=== PATIENT | female | born 1965 | race Two or more races ===

== ENCOUNTER 2022-10-05 18:33 | Emergency (ER) | payer SELFPAY ==
[~2022-10-05] VITALS: Ht 165.1 cm; Wt 95.2 kg
[2022-10-05] MEDS ORDERED: cloNIDine HCL 0.1 MG TAB PO ONE (20:00)
[2022-10-05 20:22] LABS: Basophils # (auto) 0.5 10 ^3/uL (0-0.2); Basophils % (auto) 4.6 % (0.0-2.0); Eosinophils # (auto) 0.2 10 ^3/uL (0-0.8); Eosinophils % (auto) 1.9 % (0.0-7.0); Hematocrit 44.6 % (36.0-46.0); Hemoglobin 15.1 g/dL (12.2-16.2); Lymphocytes # (auto) 1.6 10 ^3/uL (0.4-5.4); Lymphocytes % (auto) 16.4 % (10.0-50.0); Mean Corpuscular Hemoglobin 27.7 pg (28.0-32.0); Mean Corpuscular Hgb Conc. 33.9 g/dL (32.0-36.0); Mean Corpuscular Volume 81.6 fL (80.0-100.0); Monocytes # (auto) 0.3 10 ^3/uL (0-1.3); Monocytes % (auto) 3.1 % (0.0-12.0); Neutrophils # (auto) 7.3 10 ^3/uL (1.6-8.6); Nucleated Red Blood Cells % 0.4 %; Red Blood Cells 5.46 10^6/uL (4.0-5.20); Red Cell Distribution Width 14.4 % (11.8-14.3); White Blood Cell 9.9 10^3/uL (4.4-10.8)
[2022-10-05 20:37] LABS: Albumin 4.1 g/dL (3.4-5.0); Calcium 9.2 mg/dL (8.5-10.1); Potassium 3.7 mmol/L (3.5-5.1)
[2022-10-05 20:42] LABS: Bilirubin, Total 0.5 mg/dL (0.2-1.0); Total Protein 7.8 g/dL (6.4-8.2)
[2022-10-05] MEDS ORDERED: IOHEXOL 350 MG/ML 100ML IJ ONE (20:51)
[2022-10-05 21:25] LABS: Urine Bacteria FEW /hpf (None Seen); Urine Blood Negative /uL (Negative); Urine Mucus FEW (None Seen); Urine Specific Gravity 1.012 (1.001-1.035); Urine WBC 1 /hpf (0 - 5)
[2022-10-05 21:44] LABS: Alcohol, Urine < 3.0 mg/dL (0-10); Amphetamine Screen, Urine NEGATIVE (NEGATIVE); Barbiturate Scree,Urine NEGATIVE (NEGATIVE); Benzodiazephine Screen, Urine NEGATIVE (NEGATIVE); Cannabinoid Screen, Urine NEGATIVE (NEGATIVE); Cocaine Screen, Urine NEGATIVE (NEGATIVE); Opiate Scree,Urine NEGATIVE (NEGATIVE); Phencyclidine Screen, Urine NEGATIVE (NEGATIVE)
[2022-10-06] MEDS ORDERED: AMLO-496 PO (05:30)
[2022-10-06] MEDS ORDERED: FAMO20TA10 PO (05:30)
[2022-10-06 05:40] VITALS: BP 131/81
== END 2022-10-06 06:01 | disposition home or self-care (01) ==
LOC: ER 18:33
DX: I10 Essential (primary) hypertension (principal); K21.00 Gastro-esophageal reflux disease with esophagitis, without bleeding; Z79.899 Other long term (current) drug therapy
CPT/HCPCS: 36415; 71275; 80053; 80307; 81001; 83880; 84484; 85025; 85379; 93005; 99285; Q9967

== ENCOUNTER 2022-10-18 11:04 | Emergency (ER) | payer SELFPAY ==
[~2022-10-18] VITALS: Ht 165.1 cm; Wt 98.0 kg
[~2022-10-18 11:04] MED LIST: AMLO-496 PO; FAMO20TA10 PO
[2022-10-18 12:10] LABS: Urine Bacteria NONE SEEN /hpf (None Seen); Urine Blood Negative /uL (Negative); Urine Specific Gravity 1.011 (1.001-1.035); Urine WBC 1 /hpf (0 - 5)
[2022-10-18 12:13] LABS: Albumin 4.1 g/dL (3.4-5.0); BUN/Creatinine Ratio 12.6 (10.0-20.0); Calcium 9.2 mg/dL (8.5-10.1)
[2022-10-18 12:14] LABS: Bilirubin, Total 0.6 mg/dL (0.2-1.0); Total Protein 7.7 g/dL (6.4-8.2)
[2022-10-18 13:19] LABS: Basophils # (auto) 0.1 10 ^3/uL (0-0.2); Basophils % (auto) 0.8 % (0.0-2.0); Eosinophils # (auto) 0.3 10 ^3/uL (0-0.8); Hematocrit 42.6 % (36.0-46.0); Hemoglobin 14.6 g/dL (12.2-16.2); Lymphocytes # (auto) 1.5 10 ^3/uL (0.4-5.4); Mean Corpuscular Hemoglobin 28.1 pg (28.0-32.0); Mean Corpuscular Hgb Conc. 34.3 g/dL (32.0-36.0); Monocytes # (auto) 0.4 10 ^3/uL (0-1.3); Monocytes % (auto) 4.4 % (0.0-12.0); Neutrophils # (auto) 6.5 10 ^3/uL (1.6-8.6); Neutrophils % (auto) 74.8 % (37.0-80.0); Nucleated Red Blood Cells % 0.5 %; Red Cell Distribution Width 14.8 % (11.8-14.3); White Blood Cell 8.6 10^3/uL (4.4-10.8)
[2022-10-18] MEDS ORDERED: METH4PAK PO (13:49)
[2022-10-18 14:00] VITALS: BP 150/83
== END 2022-10-18 14:18 | disposition home or self-care (01) ==
LOC: ER 11:04
DX: R21 Rash and other nonspecific skin eruption (principal); R22.43 Localized swelling, mass and lump, lower limb, bilateral; R19.7 Diarrhea, unspecified; R11.0 Nausea; I10 Essential (primary) hypertension
CPT/HCPCS: 36415; 80053; 81001; 85025; 85652

== ENCOUNTER 2022-11-15 16:16 | Emergency (ER) | payer OTHER ==
[~2022-11-15] VITALS: Ht 165.1 cm; Wt 91.0 kg
[~2022-11-15 16:16] MED LIST changes: +METH4PAK PO
[2022-11-15 16:36] LABS: Basophils # (auto) 0.1 10 ^3/uL (0-0.2); Basophils % (auto) 0.9 % (0.0-2.0); Eosinophils # (auto) 0.1 10 ^3/uL (0-0.8); Eosinophils % (auto) 1.3 % (0.0-7.0); Hematocrit 41.3 % (36.0-46.0); Hemoglobin 14.2 g/dL (12.2-16.2); Lymphocytes # (auto) 2.2 10 ^3/uL (0.4-5.4); Lymphocytes % (auto) 25.3 % (10.0-50.0); Mean Corpuscular Hemoglobin 27.8 pg (28.0-32.0); Mean Corpuscular Hgb Conc. 34.3 g/dL (32.0-36.0); Mean Corpuscular Volume 81.1 fL (80.0-100.0); Monocytes # (auto) 0.4 10 ^3/uL (0-1.3); Monocytes % (auto) 4.3 % (0.0-12.0); Neutrophils # (auto) 5.9 10 ^3/uL (1.6-8.6); Neutrophils % (auto) 68.2 % (37.0-80.0); Nucleated Red Blood Cells % 0.2 %; Red Blood Cells 5.09 10^6/uL (4.0-5.20); Red Cell Distribution Width 14.8 % (11.8-14.3); White Blood Cell 8.7 10^3/uL (4.4-10.8)
[2022-11-15] MEDS ORDERED: IOHEXOL 350 MG/ML 100ML IJ ONE ×2 (16:58→22:05)
[2022-11-15 17:13] LABS: Albumin 4.1 g/dL (3.4-5.0); Calcium 9.7 mg/dL (8.5-10.1)
[2022-11-15 17:17] LABS: BUN/Creatinine Ratio 9.3 (10.0-20.0); Bilirubin, Total 0.6 mg/dL (0.2-1.0); Total Protein 7.6 g/dL (6.4-8.2)
[2022-11-15 19:13] VITALS: BP 153/87
== END 2022-11-15 19:25 | disposition home or self-care (01) ==
LOC: ER 16:16
DX: R06.00 Dyspnea, unspecified (principal); E78.5 Hyperlipidemia, unspecified; I10 Essential (primary) hypertension
CPT/HCPCS: 36415; 71045; 71275; 80053; 84484; 85025; 93005; 99285; Q9967

== ENCOUNTER → 2022-11-30 | Outpatient (CLI) | payer OTHER ==
[~2022-11-30] MED LIST changes: +ONDANSETRON HCL 4 MG/2 ML VIAL IV ONE; +ONDANSETRON HCL 4 MG/2 ML VIAL ONE; +SODIUM CHLORIDE 0.9% 500 ML IV ONE
[2022-11-30 10:14] VITALS: BP 152/97
[2022-11-30 11:15] VITALS: BP 127/76
[2022-11-30 12:15] VITALS: BP 135/78
== END | disposition home or self-care (01) ==
LOC: CHF HDHVI 10:02
PROVIDERS: ATTEND Internal Medicine Cardiovascular Disease
DX: I10 Essential (primary) hypertension (principal); D64.9 Anemia, unspecified; E78.5 Hyperlipidemia, unspecified
CPT/HCPCS: 96361; 96374; G0463; J2405; J7040

== ENCOUNTER → 2022-12-06 | Outpatient (CLI) | payer OTHER ==
[~2022-12-06] MED LIST changes: -ONDANSETRON HCL 4 MG/2 ML VIAL IV ONE; -ONDANSETRON HCL 4 MG/2 ML VIAL ONE; -SODIUM CHLORIDE 0.9% 500 ML IV ONE
== END | disposition home or self-care (01) ==
LOC: Rad HDHVI 09:00
PROVIDERS: ATTEND Internal Medicine Cardiovascular Disease
DX: I07.1 Rheumatic tricuspid insufficiency (principal); I10 Essential (primary) hypertension
CPT/HCPCS: 93306

== ENCOUNTER → 2022-12-12 | Outpatient (CLI) | payer OTHER ==
[~2022-12-12] MED LIST changes: +IOHEXOL 350 MG/ML 100ML IJ ONE
[2022-12-12 09:25] VITALS: BP 153/85
[2022-12-12 09:48] VITALS: BP 157/88
== END | disposition home or self-care (01) ==
LOC: Rad HDHVI 09:06
PROVIDERS: ATTEND Internal Medicine Cardiovascular Disease
DX: I70.1 Atherosclerosis of renal artery (principal); I10 Essential (primary) hypertension
CPT/HCPCS: 74175; G0463; Q9967

== ENCOUNTER 2024-11-24 19:09 | Emergency (ER) | payer OTHER ==
[~2024-11-24] VITALS: Ht 165.1 cm; Wt 77.0 kg
[~2024-11-24 19:09] MED LIST changes: -AMLO-496 PO; +AMLO1TAB23 PO; -IOHEXOL 350 MG/ML 100ML IJ ONE
--- NOTE | 2024-11-24 20:21 | DVH ---
CLINICAL INDICATION: fall TECHNIQUE: 3 radiographic views of the right wrist were obtained. Comparison: None FINDINGS/IMPRESSION: There is no evidence of acute fracture or dislocation. The visualized joint space is well maintained. The alignment is anatomical. There is no radiopaque foreign body.
--- NOTE | 2024-11-24 20:51 | ED.PDOC ---
Stacy. trauma (HPI) HPI Comments 59 y/o F, with PMHx of HLD and HTN presents to the ED for CC of s/p fall. Patient states, that she tripped over dog gate, fell, and caught herself with her right wrist. Patient complains, of current 6/10 pain following trauma. Patient denies cervical injury, head injury, open wounds, or loss of consciousness. No other symptoms or modifying factors present at this time. Chief Complaint: Upper Extremity Time Seen by MD: 20:00 Primary Care Provider: SRAVAN Kwok notes: Nurses Notes, Medications, Allergies Allergies: Coded Allergies: Amlodipine (Verified Allergy, Unknown, 11/15/22) Home Meds Active Scripts Methylprednisolone (Medrol Dosepak) 4 Mg Caleb, 4 MG PO UD, #21 TAB UAD Prov:CHICO BOURNE MD 10/18/22 Amlodipine Besylate (Amlodipine Besylate) 10 Mg Tab, 10 MG PO DAILY for 30 Days, #30 TAB Prov:QUANG GARCIA DO 10/06/22 Famotidine (PEPCID TABLET) 20 Mg Tb, 1 TAB PO BID for 20 Days, #40 TAB 5 Refills Prov:QUANG GARCIA DO 10/06/22 Information Source: Patient Mode of Arrival: Ambulatory Severity: Moderate Timing: Hours Duration: Since onset Prehospital treatment: None Location: (R) Wrist Location of laceration: None Mechanism: Fall Associated signs and symtoms: None Past Medical History PAST MEDICAL HISTORY: High Lipids, HTN Surgical History: Denies all surgeries GUEST SERVICES OFFICER History: No Pertinent GUEST SERVICES OFFICER History Family History Family History: Unknown Social History Smoker: Non-Smoker Alcohol: Denies ETOH Use Drugs: Denies Drug Use Lives In: Home Constitutional: denies: chills, diaphoresis, fatigue, fever, malaise, sweats, weakness, others EENTM: denies: blurred vision, double vision, ear bleeding, ear discharge, ear drainage, ear pain, ear ringing, eye pain, eye redness, hearing loss, mouth pain, mouth swelling, nasal discharge, nose bleeding, nose congestion, nose pain, photophobia, tearing, throat pain, throat swelling, voice changes, others Respiratory: denies: cough, hemoptysis, orthopnea, SOB at rest, shortness of breath, SOB with excertion, stridor, wheezing, others Cardiovascular: denies: chest pain, dizzy spells, diaphoresis, Dyspnea on exertion, edema, irregular heart beat, left arm pain, lightheadedness, palpitations, PND, syncope, others Gastrointestinal: denies: abdomen distended, abdominal pain, blood streaked bowels, constipated, diarrhea, dysphagia, difficulty swallowing, hematemesis, melena, nausea, poor appetite, poor fluid intake, rectal bleeding, rectal pain, vomiting, others Genitourinary: denies: abnormal vagina bleeding, burning, dyspareunia, dysuria, flank pain, frequency, hematuria, incontinence, pain, , vagina discharge, urgency, others Neurological: denies: dizziness, fainting, headache, left sided numbness, left sided weakness, numbness, paresthesia, pre-existing deficit, right sided numbness, right sided weakness, seizure, speech problems, tingling, tremors, weakness, others Musculoskeletal: reports: others (right wrist pain); denies: back pain, gout, joint pain, joint swelling, muscle pain, muscle stiffness, neck pain Integumetry: denies: bruises, change in color, change in hair/nails, dryness, laceration, lesions, lumps, rash, wounds, others Allergic/Immunocompromised: denies: Difficulty Healing, Frequent Infections, Hives, Itching, others Hematologic/Lymphatic: denies: anemia, blood clots, easy bleeding, easy bruising, swollen glands, others Endocrine: denies: excessive hunger, excessive sweating, excessive thirst, excessive urination, flushing, intolerance to cold, intolerance to heat, unexplained weight gain, unexplained weight loss, others Psychiatric: denies: anxiety, bipolar disorder, depression, hopeless, panic disorder, schizophrenia, sleepless, suicidal, others All Other Systems: Reviewed and Negative Physical Exam General Appearance: No Apparent Distress, Normal HEENT: Normal ENT Inspection, Pharynx Normal, TMs Normal Neck: Full Range of Motion, Non-Tender, Normal, Normal Inspection Respiratory: Chest Non-Tender, Lungs Clear, No Accessory Muscle Use, No Respiratory Distress, Normal Breath Sounds Cardiovascular: No Edema, No JVD, No Murmur, No Gallop, Normal Peripheral Pulses, Regular Rate/Rhythm Breast Exam: Deferred Gastrointestinal: No Organomegaly, Non Tender, No Pulsatile Mass, Normal Bowel Sounds, Soft Genitalia: Deferred Pelvic: Deferred Rectal: Deferred Extremities: No calf tenderness, Normal capillary refill, Normal inspection, Normal range of motion, Non-tender, No pedal edema Musculoskeletal : Apperance: Normal Neurologic: Alert, metal bonding press operator II-XII nml as Tested, No Motor Deficits, Normal Affect, Normal Mood, No Sensory Deficits Cerebellar Function: Normal Reflexes: Normal Skin: Dry, Normal Color, Warm Lymphatic: No Adenopathy Was a procedure done? Was a procedure done?: No Differential Diagnosis Multiple Trauma: Fractures, Contusion, Other (strain, dislocation) X-Ray, Labs, Meds, VS Vital Signs Date Time Temp Pulse Resp B/P (MAP) Pulse Ox O2 Delivery O2 Flow Rate FiO2 11/24/24 19:30 98.4 75 20 136/69 (91) 99 98.4 Time of 1ST Reevaluation: 20:30 Reevaluation 1ST: Unchanged Patient Education/Counseling: Diagnosis, Treatment Family Education/Counseling: No Family Present Departure 1 Departure Time of Disposition: 20:56 Impression: Primary Impression: Contusion of right wrist Qualified Codes: S60.211A - Contusion of right wrist, initial encounter Disposition: HOME / SELF CARE / HOMELESS Condition: Fair Discharged With: Self Critical Care Note Critical Care Time?: No Stability Stability form required: No Heart Score Heart Score: Heart Score Response (Comments) Value History N/A 0 EKG N/A 0 Age N/A 0 Risk Factors N/A 0 Troponin N/A 0 Total 0 I personally scribed for MARTÍNEZ SEXTON ([email or web address]) on 11/24/24 at 20:51. Electronically submitted by Lissy Burns ([email or web address]). MARTÍNEZ SEXTON Nov 24, 2024 20:51
--- NOTE | 2024-11-24 20:56 | ED.PDOC ---
Musculoskeletal HPI Comments 59-year-old female complaining of right wrist pain. Patient states she tripped over a dog gate and fell on her right wrist. Injury happened today. Nothing makes it better, movement makes it worse. Chief Complaint: Upper Extremity Time Seen by MD: 19:21 Primary Care Provider: SRAVAN Kwok Notes: Nurses Notes Allergies: Coded Allergies: Amlodipine (Verified Allergy, Unknown, 11/15/22) Home Meds Active Scripts Methylprednisolone (Medrol Dosepak) 4 Mg Caleb, 4 MG PO UD, #21 TAB UAD Prov:CHICO BOURNE MD 10/18/22 Amlodipine Besylate (Amlodipine Besylate) 10 Mg Tab, 10 MG PO DAILY for 30 Days, #30 TAB Prov:QUANG GARCIA DO 10/06/22 Famotidine (PEPCID TABLET) 20 Mg Tb, 1 TAB PO BID for 20 Days, #40 TAB 5 Refills Prov:QUANG GARCIA DO 10/06/22 Information Source: Patient Mode of Arrival: Ambulatory Location: Right Extremity Location: Wrist Past Medical History PAST MEDICAL HISTORY: High Lipids, HTN Surgical History: Denies all surgeries BOWLING ALLEY FLOORS INSTALLER History: No Pertinent BOWLING ALLEY FLOORS INSTALLER History Family History Family History: Unknown Social History Smoker: Non-Smoker Alcohol: Denies ETOH Use Drugs: Denies Drug Use Lives In: Home Constitutional: denies: chills, diaphoresis, fatigue, fever, malaise, sweats, weakness, others EENTM: denies: blurred vision, double vision, ear bleeding, ear discharge, ear drainage, ear pain, ear ringing, eye pain, eye redness, hearing loss, mouth pain, mouth swelling, nasal discharge, nose bleeding, nose congestion, nose pain, photophobia, tearing, throat pain, throat swelling, voice changes, others Respiratory: denies: cough, hemoptysis, orthopnea, SOB at rest, shortness of breath, SOB with excertion, stridor, wheezing, others Cardiovascular: denies: chest pain, dizzy spells, diaphoresis, Dyspnea on exertion, edema, irregular heart beat, left arm pain, lightheadedness, palpitations, PND, syncope, others Gastrointestinal: denies: abdomen distended, abdominal pain, blood streaked bowels, constipated, diarrhea, dysphagia, difficulty swallowing, hematemesis, melena, nausea, poor appetite, poor fluid intake, rectal bleeding, rectal pain, vomiting, others Genitourinary: denies: abnormal vagina bleeding, burning, dyspareunia, dysuria, flank pain, frequency, hematuria, incontinence, pain, , vagina discharge, urgency, others Neurological: denies: dizziness, fainting, headache, left sided numbness, left sided weakness, numbness, paresthesia, pre-existing deficit, right sided numbness, right sided weakness, seizure, speech problems, tingling, tremors, weakness, others Musculoskeletal: reports: muscle pain, muscle stiffness; denies: back pain, gout, joint pain, joint swelling, neck pain, others Integumetry: denies: bruises, change in color, change in hair/nails, dryness, laceration, lesions, lumps, rash, wounds, others Allergic/Immunocompromised: denies: Difficulty Healing, Frequent Infections, Hives, Itching, others Hematologic/Lymphatic: denies: anemia, blood clots, easy bleeding, easy bruising, swollen glands, others Physical Exam General Appearance: No Apparent Distress, Normal HEENT: Normal ENT Inspection, Pharynx Normal, TMs Normal Neck: Full Range of Motion, Non-Tender, Normal, Normal Inspection Respiratory: Chest Non-Tender, Lungs Clear, No Accessory Muscle Use, No Respiratory Distress, Normal Breath Sounds Cardiovascular: No Edema, No JVD, No Murmur, No Gallop, Normal Peripheral Pulses, Regular Rate/Rhythm Breast Exam: Deferred Gastrointestinal: No Organomegaly, Non Tender, No Pulsatile Mass, Normal Bowel Sounds, Soft Genitalia: Deferred Pelvic: Deferred Rectal: Deferred Extremities: No calf tenderness, Normal capillary refill, Normal inspection, Other (Tender to palpation of the right wrist distal ulna. No obvious crepitus no obvious swelling. Mild redness noted.) Musculoskeletal : Apperance: Normal Neurologic: Alert, bagger meat II-XII nml as Tested, No Motor Deficits, Normal Affect, Normal Mood, No Sensory Deficits Cerebellar Function: Normal Reflexes: Normal Skin: Dry, Normal Color, Warm Lymphatic: No Adenopathy Was a procedure done? Was a procedure done?: No Differential Diagnosis EXT Differential Diagnosis: Fracture, Sprain, Dislocation X-Ray, Labs, Meds, VS Vital Signs Date Time Temp Pulse Resp B/P (MAP) Pulse Ox O2 Delivery O2 Flow Rate FiO2 11/24/24 19:30 98.4 75 20 136/69 (91) 99 98.4 X-Ray, Labs, Meds, VS Comment Imaging: X-rays and CT scans were reviewed and interpreted by this provider, imaging shows no fractures and no pathological disease. Pending radiology review. Laboratory: Labs reviewed and interpreted by this provider. No significant abnormalities noted. Patient has prior medical visits reviewed. Med reconciliation performed Vital signs reviewed Time of 1ST Reevaluation: 20:30 Reevaluation 1ST: Unchanged Patient Education/Counseling: Diagnosis, Treatment, Need For Follow Up (Follow up with PCP in the next 3-5 days.) Family Education/Counseling: Diagnosis Departure 1 Departure Time of Disposition: 20:30 Impression: Primary Impression: Contusion of right wrist Qualified Codes: S60.211A - Contusion of right wrist, initial encounter Disposition: HOME / SELF CARE / HOMELESS Condition: Fair Discharged With: Self Critical Care Note Critical Care Time?: No Stability Stability form required: No Heart Score Heart Score: Heart Score Response (Comments) Value History N/A 0 EKG N/A 0 Age N/A 0 Risk Factors N/A 0 Troponin N/A 0 Total 0 MARTÍNEZ SEXTON [employer]AL SURFACE FIRE SUPPORT PLANNER Nov 24, 2024 20:56
[2024-11-24 21:06] VITALS: BP 136/69; PULSE 75; RESP 20; TEMP 98.4; O2SAT 99
== END 2024-11-24 21:00 | disposition home or self-care (01) ==
LOC: ER 19:09
DX: S60.211A Contusion of right wrist, initial encounter (principal); I10 Essential (primary) hypertension; E78.5 Hyperlipidemia, unspecified; Z88.1 Allergy status to other antibiotic agents; W01.0XXA Fall on same level from slipping, tripping and stumbling without subsequent striking against object, initial encounter; Y93.89 Activity, other specified; Y92.89 Other specified places as the place of occurrence of the external cause; Y99.8 Other external cause status
CPT/HCPCS: 73110

== ENCOUNTER 2025-04-13 10:50 | Inpatient (IN) | payer OTHER ==
[~2025-04-13] VITALS: Ht 165.1 cm; Wt 86.7 kg
--- NOTE | 2025-04-13 11:07 | ECG ---
[facility] Test Date: 2025-04-13 Test Time: 11:06:15 Pat Name: KING RAGSDALE Department[facility] Patient [id number] Room: 0206T Gender: F Diffuser Operator: gp : [id number] Requested By: EMERGENCY EMERGENCY Order Number: [id number] Reading MD: Tra Collado Measurements Intervals [place] Rate: 80 P: 28 AK: 169 QRS: -14 QRSD: 92 T: 21 QT: 395 QTc: 456 Interpretive Statements Sinus rhythm Low voltage, precordial leads Left ventricular hypertrophy Anterior Q waves, possibly due to LVH Baseline wander in lead(s) I,III,aVL,V1,V2 Electronically Signed On 04-14-2025 17:00:01 PDT by Tra Collado Please click the below link to view image of tracing.
--- NOTE | 2025-04-13 11:39 | ED.PDOC ---
HPI Comments This is a 59-year-old female with past medical history of hypertension and anxiety disorder came to the hospital due to chest pain since today morning. She describes the pain as diffuse chest pain, started while she was walking, radiated to the left shoulder, pressure-like, 7/10 in intensity, with no clear exacerbating or relieving factor. She also reports of blurry vision, nausea, vomiting, and shortness of breaths. Per patient, 1 week back she felt dizzy and lightheadedness and since then she has not feeling well. She denies fever, cough, palpitation, sweating, or any recent sick contact/chest trauma. Home meds: Sertraline, previously was taking lisinopril (recently due to low blood pressure, PCP as stopped taking medicine), tirzepatide Chief Complaint: Chest Pain Time Seen by MD: 10:55 Primary Care Provider: SRAVAN Reviewed Notes: Nurses Notes Allergies: Coded Allergies: Amlodipine (Verified Allergy, Unknown, 11/15/22) Home Meds Active Scripts Methylprednisolone (Medrol Dosepak) 4 Mg Caleb, 4 MG PO UD, #21 TAB UAD Prov:CHICO BOURNE MD 10/18/22 Amlodipine Besylate (Amlodipine Besylate) 10 Mg Tab, 10 MG PO DAILY for 30 Days, #30 TAB Prov:QUANG GARCIA DO 10/06/22 Famotidine (PEPCID TABLET) 20 Mg Tb, 1 TAB PO BID for 20 Days, #40 TAB 5 Refills Prov:QUANG GARCIA DO 10/06/22 Information Source: Patient Mode of Arrival: Ambulatory Past Medical History PAST MEDICAL HISTORY: High Lipids, HTN Surgical History: Denies all surgeries DIALYSIS PATIENT CARE TECHNICIAN History: No Pertinent DIALYSIS PATIENT CARE TECHNICIAN History Family History Family History: Unknown Social History Smoker: Non-Smoker Alcohol: Denies ETOH Use Drugs: Denies Drug Use Lives In: Home Constitutional: denies: chills, diaphoresis, fatigue, fever, malaise, sweats, weakness, others EENTM: denies: blurred vision, double vision, ear bleeding, ear discharge, ear drainage, ear pain, ear ringing, eye pain, eye redness, hearing loss, mouth pain, mouth swelling, nasal discharge, nose bleeding, nose congestion, nose pain, photophobia, tearing, throat pain, throat swelling, voice changes, others Respiratory: denies: cough, hemoptysis, orthopnea, SOB at rest, shortness of breath, SOB with excertion, stridor, wheezing, others Cardiovascular: reports: chest pain, dizzy spells; denies: diaphoresis, Dyspnea on exertion, edema, irregular heart beat, left arm pain, lightheadedness, palpitations, PND, syncope, others Gastrointestinal: reports: nausea, vomiting; denies: abdomen distended, abdominal pain, blood streaked bowels, constipated, diarrhea, dysphagia, diffi culty swallowing, hematemesis, melena, poor appetite, poor fluid intake, rectal bleeding, rectal pain, others Genitourinary: denies: abnormal vagina bleeding, burning, dyspareunia, dysuria, flank pain, frequency, hematuria, incontinence, pain, , vagina discharge, urgency, others Neurological: denies: dizziness, fainting, headache, left sided numbness, left sided weakness, numbness, paresthesia, pre-existing deficit, right sided numbness, right sided weakness, seizure, speech problems, tingling, tremors, weakness, others Musculoskeletal: denies: back pain, gout, joint pain, joint swelling, muscle pain, muscle stiffness, neck pain, others Integumetry: denies: bruises, change in color, change in hair/nails, dryness, laceration, lesions, lumps, rash, wounds, others Allergic/Immunocompromised: denies: Difficulty Healing, Frequent Infections, Hives, Itching, others Hematologic/Lymphatic: denies: anemia, blood clots, easy bleeding, easy bruising, swollen glands, others Endocrine: denies: excessive hunger, excessive sweating, excessive thirst, excessive urination, flushing, intolerance to cold, intolerance to heat, unexplained weight gain, unexplained weight loss, others Psychiatric: denies: anxiety, bipolar disorder, depression, hopeless, panic disorder, schizophrenia, sleepless, suicidal, others Physical Exam General Appearance: No Apparent Distress, Normal HEENT: Normal ENT Inspection, Pharynx Normal, TMs Normal Neck: Full Range of Motion, Non-Tender, Normal, Normal Inspection Respiratory: Chest Non-Tender, Lungs Clear, No Accessory Muscle Use, No Respiratory Distress, Normal Breath Sounds Cardiovascular: No Edema, No JVD, No Murmur, No Gallop, Normal Peripheral Pulses, Regular Rate/Rhythm Breast Exam: Deferred Gastrointestinal: No Organomegaly, Non Tender, No Pulsatile Mass, Normal Bowel Sounds, Soft Genitalia: Deferred Pelvic: Deferred Rectal: Deferred Extremities: No calf tenderness, Normal capillary refill, Normal inspection, Normal range of motion, Non-tender, No pedal edema Musculoskeletal : Apperance: Normal Neurologic: Alert, imcu specialist II-XII nml as Tested, No Motor Deficits, Normal Affect, Normal Mood, No Sensory Deficits Cerebellar Function: Normal Reflexes: Normal Skin: Dry, Normal Color, Warm Lymphatic: No Adenopathy EKG EKG : Comments Normal sinus rhythm with no significant ST or T-wave changes Was a procedure done? Was a procedure done?: No CP Differential Dx Differential Diagnosis: Other Differential Diagnosis: Angina, Chest Wall Pain, Cholelithiasis, Costochondritis, Esophageal reflux/spasm, Gastritis X-Ray, Labs, Meds, VS Vital Signs Date Time Temp Pulse Resp B/P (MAP) Pulse Ox O2 Delivery O2 Flow Rate FiO2 04/13/25 12:23 78 18 147/83 (104) 98 04/13/25 12:23 78 18 98 Room Air 04/13/25 12:02 72 04/13/25 11:45 147/83 04/13/25 11:06 80 04/13/25 11:04 98.0 90 17 153/84 94 98.0 Lab Test 04/13/25 14:14 04/13/25 12:13 04/13/25 11:11 Range/Units Troponin I High Sensitivity < 3 L < 3 L < 3 L </=34 ng/L Sodium Level 142 136-145 mmol/L Potassium Level 4.0 3.5-5.1 mmol/L Chloride Level 108 H 98-107 mmol/L Carbon Dioxide Level 22 20-31 mmol/L Anion Gap 12 5-15 Blood Urea Nitrogen 10 9-23 mg/dL Creatinine 0.90 0.550-1.02 mg/dL Glomerular Filtration Rate Calc 73 >90 mL/min BUN/Creatinine Ratio 11.1 10.0-20.0 Serum Glucose 100 74-106 mg/dL Calcium Level 9.4 8.7-10.4 mg/dL Magnesium Level 2.3 1.6-2.6 mg/dL Total Bilirubin 0.8 0.2-1.0 mg/dL Aspartate Amino Transferase (AST) 23 13-40 U/L Alanine Aminotransferase (ALT) 25 7-40 U/L Alkaline Phosphatase 106 46-116 U/L Total Protein 7.2 5.7-8.2 g/dL Albumin 4.4 3.2-4.8 g/dL White Blood Count 7.0 4.4-10.8 10^3/uL Red Blood Count 5.48 H 4.0-5.20 10^6/uL Hemoglobin 15.3 12.2-16.2 g/dL Hematocrit 44.8 36.0-46.0 % Mean Corpuscular Volume 81.7 80.0-100.0 fL Mean Corpuscular Hemoglobin 27.9 L 28.0-32.0 pg Mean Corpuscular Hemoglobin Concent 34.1 32.0-36.0 g/dL Red Cell Distribution Width 14.1 11.8-14.3 % Platelet Count 302 140-450 10^3/uL Mean Platelet Volume 9.0 6.9-10.8 fL Neutrophils (%) (Auto) 51.8 37.0-80.0 % Lymphocytes (%) (Auto) 35.2 10.0-50.0 % Monocytes (%) (Auto) 5.3 0.0-12.0 % Eosinophils (%) (Auto) 6.9 0.0-7.0 % Basophils (%) (Auto) 0.8 0.0-2.0 % Neutrophils # (Auto) 3.6 1.6-8.6 10 ^3/uL Lymphocytes # (Auto) 2.5 0.4-5.4 10 ^3/uL Monocytes # (Auto) 0.4 0-1.3 10 ^3/uL Eosinophils # (Auto) 0.5 0-0.8 10 ^3/uL Basophils # (Auto) 0.1 0-0.2 10 ^3/uL Nucleated Red Blood Cells 0.2 % Current Medications Medications (Trade) Dose Ordered Sig/Kaylen Route Start Time Stop Time Status Last Admin Aspirin 325 mg ONCE ONCE PO 04/13/25 11:45 04/13/25 11:46 DC 04/13/25 11:45 Ondansetron HCl (Zofran) 4 mg ONCE ONCE IV 04/13/25 11:45 04/13/25 11:46 DC 04/13/25 13:26 Nitroglycerin (Ntrostat Sublingual) 0.4 mg ONCE ONCE SL 04/13/25 11:45 04/13/25 11:46 DC 04/13/25 11:45 Time of 1ST Reevaluation: 17:05 Reevaluation 1ST: Unchanged Patient Education/Counseling: Diagnosis, Treatment, Prognosis, Need For Follow Up Family Education/Counseling: No Family Present Comments Patient came to the hospital due to chest pain. EKG within normal limits. CBC and CABG, within normal limits. Serial trop I within normal limits. Patient was given atorvastatin, aspirin and nitroglycerin. One subsequently echo, patient was feeling still the pain. Patient will be admitted in hospital for further workup and possible ischemic workup. SEPSIS Sepsis Screen Date sepsis recognized/suspect: Apr 13, 2025 Time Sepsis recognized/suspect: 1103 Recent Procedure: No On Antibiotic Therapy: No Respiratory Rate >20: No Heart Rate >90: No Temp<36 C (96.8 F) or >38.3 C: No SBP <90 or MAP <65 mmHG: No New Acute Mental Status Change: No Is the patient on CPAP, BIPAP,: No Physician Orders Electrocardigram (04/13/25 11:54) Electrocardigram (04/13/25 13:54) Drug Screen (04/13/25 11:39) Chest Xray 1 View (04/13/25 11:39) Vital Signs Date Time Temp Pulse Resp B/P (MAP) Pulse Ox O2 Delivery O2 Flow Rate FiO2 04/13/25 12:23 78 18 147/83 (104) 98 04/13/25 12:23 78 18 98 Room Air 04/13/25 12:02 72 04/13/25 11:45 147/83 04/13/25 11:06 80 04/13/25 11:04 98.0 90 17 153/84 94 98.0 Laboratory Tests Test 04/13/25 11:11 White Blood Count 7.0 10^3/uL (4.4-10.8) Medications Medications Dose Ordered Sig/Kaylen Route Start Time Stop Time Status Last Admin Dose Admin Aspirin 325 mg ONCE ONCE PO 04/13/25 11:45 04/13/25 11:46 DC 04/13/25 11:45 Nitroglycerin 0.4 mg ONCE ONCE SL 04/13/25 11:45 04/13/25 11:46 DC 04/13/25 11:45 Ondansetron HCl 4 mg ONCE ONCE IV 04/13/25 11:45 04/13/25 11:46 DC 04/13/25 13:26 Departure 1 Departure Time of Disposition: 17:05 Impression: Primary Impression: Unstable angina Disposition: 09 ADMITTED INPATIENT Admit to: Tele Condition: Guarded Critical Care Note Critical Care Time?: Yes (45 min-critical care time only) Stability Stability form required: No Heart Score Heart Score: Heart Score Response (Comments) Value History Moderate Suspicious 1 EKG Normal 0 Age 45-64 1 Risk Factors 1 or 2 risk factors 1 Troponin Normal limit 0 Total 3 ALEX LUTHER Apr 13, 2025 11:39
[2025-04-13] MEDS: ATORVASTATIN 20 MG TAB PO ONE (11:45)
[2025-04-13] MEDS: NITROGLYCERIN 0.4 MG SL TAB SL ONE (11:45)
--- NOTE | 2025-04-13 13:01 | DVH ---
XY CHEST XRAY 1 VIEW, HISTORY: chest pain COMPARISON: CR CHEST 2 VIEW on DOS: 03/06/24, CT CT ANGIO CHEST CONTRAST on DOS: 11/15/22, XY CHEST PORT ABLE on DOS: 11/15/22 CR CHEST 2 VIEW on DOS: 03/06/24, CT CT ANGIO CHEST CONTRAST on DOS: 11/15/22, XY CHEST PORTABLE on DOS: 11/15/22 TECHNICAL DATA: 1 view of the chest was obtained. FINDINGS: Lines and tubes: None Cardiomediastinal silhouette: normal Pulmonary vasculature: prominent Lung expansion: low Lung airspace: normal Lung interstitium: prominent Pleura: normal Pneumothorax: no Bones: Unremarkable Other: no IMPRESSION: Mild pulmonary congestion/interstitial edema.
[2025-04-13 13:21] LABS: Hematocrit 44.8 % (36.0-46.0); Hemoglobin 15.3 g/dL (12.2-16.2); Mean Corpuscular Hemoglobin 27.9 pg (28.0-32.0); Mean Corpuscular Volume 81.7 fL (80.0-100.0); Nucleated Red Blood Cells % 0.2 %
[2025-04-13] MEDS: ONDANSETRON HCL 4 MG/2 ML VIAL IV ONE (13:26)
[2025-04-13 13:33] LABS: Alanine Aminotransferase 25 U/L (7-40); Albumin 4.4 g/dL (3.2-4.8); Alkaline Phosphatase 106 U/L (46-116); Anion Gap 12 (5-15); BUN/Creatinine Ratio 11.1 (10.0-20.0); Blood Urea Nitrogen 10 mg/dL (9-23); Calcium 9.4 mg/dL (8.7-10.4); Carbon Dioxide 22 mmol/L (20-31); Glucose 100 mg/dL (74-106); Magnesium 2.3 mg/dL (1.6-2.6); Potassium 4.0 mmol/L (3.5-5.1); Sodium 142 mmol/L (136-145); Total Protein 7.2 g/dL (5.7-8.2)
[2025-04-13 13:34] LABS: Bilirubin, Total 0.8 mg/dL (0.2-1.0); Chloride 108 mmol/L (98-107)
[2025-04-13] MEDS ORDERED: MORPHINE SULFATE INJ 2 MG/ml SYRG IV PRN (22:00)
[2025-04-13] MEDS ORDERED: NITROGLYCERIN 0.4 MG SL TAB SL PRN (22:00)
[2025-04-13] MEDS ORDERED: DOCUSATE SOD 100 MG CAP PO PRN (22:00)
[2025-04-13] MEDS ORDERED: ACETAMINOPHEN 325 MG TAB PO PRN (22:00)
[2025-04-13] MEDS ORDERED: HYDROcodone-ACET 5/325MG TAB PO PRN (22:00)
--- NOTE | 2025-04-13 22:55 | DVHHPRES ---
History of Present Illness Resident Creating Document: DANA MATAMOROS RESIDENT History of Present Illness History of Present Illness (HPI): Vanessa García is a 59-year-old female with a past medical history significant for hypertension, panic disorder, and gastroesophageal reflux disease (GERD) presented with complaints of chest pain that began one day prior to evaluation. She describes the pain as dull, continuous, and radiating to both arms and her throat, rating its intensity as 8 out of 10. The pain does not appear to have any identifiable exacerbating or relieving factors. In addition to the chest pain, she reports associated symptoms of dizziness and blurry vision in both eyes. While in the emergency room, she experienced an episode of vomiting and tremor. She further states that she has been experiencing shortness of breath for the past two weeks. The patient denies having any fever, abdominal pain, or recent emotional or physical stressors. Past Medical History (PMH): Essential hypertension, panic disorder, GERD Past Surgical History (PSH): Esophageal polyp removal 2 months back, hysterectomy Family history (FH): No relevant family history EtOH: Admits to occasional alcohol use Smoking /Vaping: Denies smoking Recreational Drugs: Denies recreational drug use Residence: Lives with family Home Medications: Sertraline Allergies: Amlodipine PCP: Dr. Dong Specialist relevant to admission: Cardiology Review of Systems Review of Systems General: patient denies fever, fatigue, weaknes, sweating, any recent changes in appetite and weight, complains of tremor HEENT: No headaches, visiual changes, hearing loss, tinnitus, nasal congestion and discharge, and sore throat. Cardiovascular: Complains of chest pain. Respiratory: No cough, and wheezing. Gastrointestinal: Denies nausea, vomiting, dysphagia, odynophagia, heartburn, abdominal pain, flatulence, bloating, diarrhea, constipation, change in stool, or blood in stool. Genitourinary: No dysuria, hematuria, discharge, frequency, urgency, nocturia, incontinence, and urinary retention. Endocrine: No heat or cold intolerance, polydipsia, polyuria, and polyphagia. Neurological: No dizziness, extremity weakness and numbness, tremors, gait disturbance, seizures, and memory impairment. Psychiatric: Denies depression, anxiety,or insomnia. Musculoskeletal: Denies neck pain, stiffness and swelling, back pain, muscle weakness, joint pain, stiffness, swelling, or limited range of motion. Skin: No rashes, itching, skin lesion, changes in hair, nail, skin texture and breast. Hematologic/Lymphatic: Denies easy bruising, bleeding tendencies, or lymph node enlargement. Allergies: Coded Allergies: Amlodipine (Verified Allergy, Unknown, 11/15/22) Medications Current Medications Medications Dose Ordered Sig/Kaylen Route Start Time Stop Time Status Last Admin Dose Admin Acetaminophen/ Hydrocodone Bitart 1 tab Q4HP PRN PO 04/13/25 22:00 Docusate Sodium 100 mg BIDPRN PRN PO 04/13/25 22:00 Acetaminophen 650 mg Q6HP PRN PO 04/13/25 22:00 Nitroglycerin 0.4 mg Q5MINP PRN SL 04/13/25 22:00 Morphine Sulfate 2 mg Q30M PRN IV 04/13/25 22:00 Aspirin 81 mg DAILY PO 04/14/25 10:00 Atorvastatin Calcium 20 mg DAILY PO 04/14/25 10:00 Sertraline HCl 25 mg DAILY PO 04/14/25 10:00 Exam Vital Signs Vital Signs Date Time Temp Pulse Resp B/P (MAP) Pulse Ox O2 Delivery O2 Flow Rate FiO2 04/13/25 19:58 82 18 144/81 (102) 97 04/13/25 12:23 Room Air 04/13/25 11:04 98.0 98.0 Exam General Appearance: Alert, Oriented X3, Cooperative, No acute distress HEENT: Atraumatic, PERRLA, EOMI, Mucous membrane moist/pink Respiratory: Clear to auscultation, Normal air movement Cardiovascular: Regular rate, Normal S1, Normal S2, No murmurs, chest wall tenderness present Abdominal: Normal bowel sounds, Soft, No tenderness, No hepatospenomegaly, No masses Extremities: No clubbing, No cyanosis, No edema, Normal pulses, tenderness in the bilateral arms Skin: No rashes, No breakdown, No significant lesion Neuro: Normal gait, Normal speech, Strength at 5/5 X4 ext, Normal tone, Sensation intact, Cranial nerves 3-12 NL, Reflexes 2+ Psych/Mental Status: Mental status NL, Mood NL Labs/Xrays Labs Test 04/13/25 14:14 04/13/25 12:13 04/13/25 11:11 Range/Units Troponin I High Sensitivity < 3 L </=34 ng/L Sodium Level 142 136-145 mmol/L Potassium Level 4.0 3.5-5.1 mmol/L Chloride Level 108 H 98-107 mmol/L Carbon Dioxide Level 22 20-31 mmol/L Anion Gap 12 5-15 Blood Urea Nitrogen 10 9-23 mg/dL Creatinine 0.90 0.550-1.02 mg/dL Glomerular Filtration Rate Calc 73 >90 mL/min BUN/Creatinine Ratio 11.1 10.0-20.0 Serum Glucose 100 74-106 mg/dL Calcium Level 9.4 8.7-10.4 mg/dL Magnesium Level 2.3 1.6-2.6 mg/dL Total Bilirubin 0.8 0.2-1.0 mg/dL Aspartate Amino Transferase (AST) 23 13-40 U/L Alanine Aminotransferase (ALT) 25 7-40 U/L Alkaline Phosphatase 106 46-116 U/L Total Protein 7.2 5.7-8.2 g/dL Albumin 4.4 3.2-4.8 g/dL White Blood Count 7.0 4.4-10.8 10^3/uL Red Blood Count 5.48 H 4.0-5.20 10^6/uL Hemoglobin 15.3 12.2-16.2 g/dL Hematocrit 44.8 36.0-46.0 % Mean Corpuscular Volume 81.7 80.0-100.0 fL Mean Corpuscular Hemoglobin 27.9 L 28.0-32.0 pg Mean Corpuscular Hemoglobin Concent 34.1 32.0-36.0 g/dL Red Cell Distribution Width 14.1 11.8-14.3 % Platelet Count 302 140-450 10^3/uL Mean Platelet Volume 9.0 6.9-10.8 fL Neutrophils (%) (Auto) 51.8 37.0-80.0 % Lymphocytes (%) (Auto) 35.2 10.0-50.0 % Monocytes (%) (Auto) 5.3 0.0-12.0 % Eosinophils (%) (Auto) 6.9 0.0-7.0 % Basophils (%) (Auto) 0.8 0.0-2.0 % Neutrophils # (Auto) 3.6 1.6-8.6 10 ^3/uL Lymphocytes # (Auto) 2.5 0.4-5.4 10 ^3/uL Monocytes # (Auto) 0.4 0-1.3 10 ^3/uL Eosinophils # (Auto) 0.5 0-0.8 10 ^3/uL Basophils # (Auto) 0.1 0-0.2 10 ^3/uL Nucleated Red Blood Cells 0.2 % SEPSIS Sepsis Screen Date sepsis recognized/suspect: Apr 13, 2025 Time Sepsis recognized/suspect: 1103 Recent Procedure: No On Antibiotic Therapy: No Respiratory Rate >20: No Heart Rate >90: No Temp<36 C (96.8 F) or >38.3 C: No SBP <90 or MAP <65 mmHG: No New Acute Mental Status Change: No Is the patient on CPAP, BIPAP,: No Physician Orders Admit (04/13/25 21:59) Allergies (04/13/25:59) Code Status (04/13/25:59) Hydrocodone-Acet 5/325mg Tab (Taylor 5/32 (04/13/25 22:00) Docusate Sodium Capsule (Colace Capsule) (04/13/25 22:00) Fall Risk Precautions In Place QSHIFT (04/13/25 21:59) Complete Blood Count (04/14/25 04:00) Comprehensive Metabolic Panel (04/14/25 04:00) Cardiac Diet-2gna,Lofat,Lochol (04/14/25 Breakfast) Condition: Fair (04/13/25 21:59) Acetaminophen Tablet (Tylenol Tablet) (04/13/25 22:00) Nitroglycerin Sublingual (Ntrostat Subli (04/13/25 22:00) Morphine Sulfate Injection (04/13/25 22:00) Stat Ekg For Chest Pain (04/13/25 21:59) Notify Md Of Changes From Base (04/13/25 21:59) Medical Equipment Repair Technician For 24 Hours (04/13/25 21:59) Emergency Dysrhythmia Protocol (04/13/25:59) Rhythm Strips Once Every Shift (04/13/25 21:59) * Cardiology Consult (04/13/25 22:01) Aspirin Enteric Coated Tablet (Ecotrin E (04/14/25 10:00) Atorvastatin (Lipitor) (04/14/25 10:00) Sertraline Hcl (Zoloft) (04/14/25 10:00) Vital Signs Date Time Temp Pulse Resp B/P (MAP) Pulse Ox O2 Delivery O2 Flow Rate FiO2 04/13/25 19:58 82 18 144/81 (102) 97 Laboratory Tests Test 04/13/25 11:11 White Blood Count 7.0 10^3/uL (4.4-10.8) Medications Medications Dose Ordered Sig/Kaylen Route Start Time Stop Time Status Last Admin Dose Admin Aspirin 325 mg ONCE ONCE PO 04/13/25 11:45 04/13/25 11:46 DC 04/13/25 11:45 325 MG Nitroglycerin 0.4 mg ONCE ONCE SL 04/13/25 11:45 04/13/25 11:46 DC 04/13/25 11:45 0.4 MG Ondansetron HCl 4 mg ONCE ONCE IV 04/13/25 11:45 04/13/25 11:46 DC 04/13/25 13:26 4 MG Assessment/Plan Assessment/Plan Assessment and plan # Acute Chest Pain due to ? Costochondritis ? GERD - EKG, troponin negative - Telemetry - Cardiology consult - Echo - Scheduled for stress test tomorrow - IV Protonix # Panic disorder - Continue sertraline # Essential hypertension - Lisinopril held by PCP due to low blood pressure - Assess the need for restarting antihypertensives as inpatient # History of GERD - IV Protonix # History of esophageal polyps - Outpatient follow-up with PCP on discharge PUD prophylaxis: protonix 40mg DVT prophylaxis: brisk movement. Barriers to discharge: Medical diagnosis and management in progress. Patient lives with family. Independent for ADL. PCP: Dr. Dong Specialist Relevant To Admission: Cardiology Case discussed with Dr. Man. Code Status: Full Code. Complex patient care discussion needed. Spend total 33 minutes for bedside assessment, case discussion and management. Plan discussed with: Patient My Orders Orders - DANA MATAMOROS RESIDENT Procedure Category Date Status Time Admit ADMIT 04/13/25 Transmitted 21:59 Allergies EDDI 04/13/25 In Process 21:59 Code Status CODE 04/13/25 Transmitted 21:59 Hydrocodone-Acet PHA 04/13/25 In Process 5/325mg Tab (Taylor 22:00 Docusate Sodium PHA 04/13/25 In Process Capsule (Colace 22:00 Fall Risk Precautions EDDI 04/13/[address] 21:59 Complete Blood Count LAB 04/14/25 Logged 04:00 Comprehensive LAB 04/14/25 Logged Metabolic Panel 04:00 Cardiac DIET 04/14/25 Transmitted Diet-2gna,Lofat,Lochol Breakfast Condition: Fair [facility] 04/13/25 In Process 21:59 Acetaminophen Tablet PHA 04/13/25 In Process (Tylenol Tablet) 22:00 Nitroglycerin PHA 04/13/25 In Process Sublingual (Ntrostat 22:00 Morphine Sulfate PHA 04/13/25 In Process Injection 22:00 Stat Ekg For Chest [facility] 04/13/25 In Process Pain 21:59 Notify Md Of Changes [facility] 04/13/25 In Process From Base 21:59 Medical Equipment Repair Technician For [facility] 04/13/25 In Process 24 Hours 21:59 Emergency Dysrhythmia [facility] 04/13/25 In Process Protocol 21:59 Rhythm Strips Once [facility] 04/13/25 In Process Every Shift 21:59 * Cardiology Consult CONS 04/13/25 Transmitted 22:01 Aspirin Enteric PHA 04/14/25 In Process Coated Tablet 10:00 Atorvastatin (Lipitor) PHA 04/14/25 In Process 10:00 Sertraline Hcl [facility] 04/14/25 In Process (Zoloft) 10:00 Date of Service: Apr 13, 2025 Billing Provider: SABRINA MAN MD Common Visit Codes: [id number] INP/OBS CARE (HIGH) Secondary Visit Codes: [id number] CARE PLAN 30 MINUTES DANA MATAMOROS RESIDENT Apr 13, 2025 22:55
[2025-04-13 23:00] VITALS: PULSE 60; RESP 16; O2SAT 94
[2025-04-14] VITALS (8 sets, daily range): BP systolic 120–155; BP diastolic 76–106; PULSE 56–71; RESP 16–18; TEMP 97.3–98.2; O2SAT 96–99
[2025-04-14] MEDS: PANTOPRAZOLE 40 MG/10 ML VIAL INJ IV ONE (05:37)
[2025-04-14 06:34] LABS: Hematocrit 41.4 % (36.0-46.0); Hemoglobin 14.4 g/dL (12.2-16.2); Mean Corpuscular Hemoglobin 28.6 pg (28.0-32.0); Mean Corpuscular Volume 82.1 fL (80.0-100.0); Nucleated Red Blood Cells % 0.1 %
[2025-04-14 06:43] LABS: INR 1.03 (0.9-1.15); Partial Thromboplastin Time 28.2 SEC (24.5-34.5); Prothrombin Time 10.9 sec (9.3-11.8)
[2025-04-14 06:45] LABS: Alanine Aminotransferase 24 U/L (7-40); Albumin 4.1 g/dL (3.2-4.8); Alkaline Phosphatase 96 U/L (46-116); Anion Gap 9 (5-15); BUN/Creatinine Ratio 8.6 (10.0-20.0); Calcium 8.8 mg/dL (8.7-10.4); Carbon Dioxide 26 mmol/L (20-31); Glucose 95 mg/dL (74-106); Potassium 3.8 mmol/L (3.5-5.1); Sodium 143 mmol/L (136-145); Total Protein 6.8 g/dL (5.7-8.2); Triglycerides 112 mg/dL (< 150)
[2025-04-14 06:46] LABS: Bilirubin, Total 1.0 mg/dL (0.2-1.0)
[2025-04-14 06:52] LABS: Blood Urea Nitrogen 8 mg/dL (9-23); Chloride 108 mmol/L (98-107); Cholesterol 208 mg/dL (< 200); HDL Cholesterol 62 mg/dL (40-59)
[2025-04-14 06:52] LABS: Amphetamine Screen, Urine Neg (NEGATIVE); Barbiturate Scree,Urine Neg (NEGATIVE); Benzodiazephine Screen, Urine Neg (NEGATIVE); Cannabinoid Screen, Urine Neg (NEGATIVE); Cocaine Screen, Urine Neg (NEGATIVE); Opiate Scree,Urine Neg (NEGATIVE); Phencyclidine Screen, Urine Neg (NEGATIVE)
[2025-04-14 07:04] LABS: Urine Protein, UAD Negative (Negative)
[2025-04-14 07:29] LABS: COVID19 ANTIGEN SOFIA FIA NEGATIVE (NEGATIVE)
--- NOTE | 2025-04-14 07:38 | ECG ---
[facility] Test Date: 2025-04-13 Test Time: 12:02:18 Pat Name: KING RAGSDALE Department: [facility] ED Patient ID: [id number] Room: 0206T A Gender: F Factory Superintendent: slade : 1965 Requested By: EMERGENCY EMERGENCY Order Number: [id number] Reading MD: Tra Collado Measurements Intervals [place] Rate: 72 P: 49 NM: 174 QRS: -6 QRSD: 85 T: 30 QT: 401 QTc: 439 Interpretive Statements Sinus rhythm Low voltage, precordial leads LVH by voltage Anterior Q waves, possibly due to LVH Electronically Signed On 04-14-2025 17:00:05 PDT by Tra Collado Please click the below link to view image of tracing.
--- NOTE | 2025-04-14 08:26 | DVH ---
Carotid Duplex Clinical History: presyncope Comparison: None Technique: Duplex Doppler evaluation of the extracranial carotid and vertebral arteries including color Doppler and spectral/pulsed waveform analysis was performed. Findings: RIGHT SIDE: The peak systolic velocities are 71 cm/s in the CCA, 78 cm/s in the ICA. The ICA/CCA ratio is 1.1. The external carotid artery is patent with peak systolic velocity of 79.5 cm/s proximally. There is appropriate antegrade flow in the right vertebral artery. LEFT SIDE: The peak systolic velocities are 70 cm/s in the CCA, 79 cm/s in the ICA. The ICA/CCA ratio is 1.1. The external carotid artery is patent with peak systolic velocity of 94 cm/s proximally. There is appropriate antegrade flow in the left vertebral artery. IMPRESSION: Less than 50% stenosis of the right carotid system secondary to mild plaque. No hemodynamically significant stenosis noted in the left carotid system. Reference: Radiology 2003; 229:340-346 Normal ICA PSV is <125 cm/sec and no plaque or intimal thickening is visible sonographically addition al criteria include ICA/CCA PSV ratio <2.0 and ICA EDV <40 cm/sec <50% ICA stenosis ICA PSV is <125 cm/sec and plaque or intimal thickening is visible sonographically additional criteria include ICA/CCA PSV ratio <2.0 and ICA EDV <40 cm/sec 50-69% ICA stenosis ICA PSV is 125-230 cm/sec and plaque is visible sonographically additional criter ia include ICA/CCA PSV ratio of 2.0-4.0 and ICA EDV of 40-100 cm/sec 70% ICA stenosis but less than near occlusion ICA PSV is >230 cm/sec and visible plaque and luminal narrowing are seen at españa-scale and color Doppler ultrasound (the higher the Doppler parameters lie above the threshold of 230 cm/sec, the greater the likelihood of severe disease) additional criteria include ICA/CCA PSV ratio >4 and ICA EDV >100 cm/sec
[2025-04-14] MEDS: SERTRALINE HCL 50 MG TAB PO SCH (10:00)
[2025-04-14] MEDS: ASPirin-EC 81 mg tab PO SCH (11:20)
[2025-04-14] MEDS: ATORVASTATIN 20 MG TAB PO SCH (11:21)
--- NOTE | 2025-04-14 12:12 | DVHCONRES ---
Date Seen: Apr 14, 2025 Resident Creating Document: KRISTOPHER EPPS RESIDENT Referring Physician DANA MATAMOROS RESIDENT Reason for Consultation Angina History of Present Illness Vanessa García is a 59-year-old female with a past medical history significant for hypertension, panic disorder, and gastroesophageal reflux disease (GERD) presented with complaints of chest pain that began one day prior to evaluation. She describes the pain as dull, continuous, and radiating to both arms and her throat, rating its intensity as 8 out of 10. The pain does not appear to have any identifiable exacerbating or relieving factors. In addition to the chest pain, she reports associated symptoms of dizziness and blurry vision in both eyes. While in the emergency room, she experienced an episode of vomiting and tremor. She further states that she has been experiencing shortness of breath for the past two weeks. The patient denies having any fever, abdominal pain, or recent emotional or physical stressors. * Chief concern: Chest pain/heaviness (onset yesterday) now largely improved; residual throat heaviness only. * Character/Location/Radiation: Yesterday diffuse anterior chest heaviness radiating to throat/neck and both arms (brief cramping L>R). Today localized upper anterior chest/throat heaviness. * Severity/Trend: Initial 8/10 yesterday ? steadily improving after ED therapy (nitroglycerin helped; received morphine). * Reproducibility: Marked chest wall/rib tenderness on palpation reproduces symptoms; shoulder ROM does not worsen pain. * Associated symptoms: Nausea/vomiting (yesterday), lightheadedness, blurred vision, 2 weeks of intermittent SOB. No syncope, no diaphoresis, no jaw pain. * Exertion: Walks daily; no exertional provocation reported. * Prior cardiac history: No known CAD, PA, PCI/CABG, or pacer. Echo 12/06/2022: EF >55%, mild LVH. * Risk factors: HTN, elevated LDL 137 mg/dL, total cholesterol 208 mg/dL; no DM; nonsmoker (per interview). * GI history: Esophageal polypectomy x6 ~2 months ago; current pain new/different from prior esophageal discomfort. Brief Gist of Today * Symptoms improved; pain largely non-exertional and reproducible to palpation. * Serial high-sensitivity troponins <3 4, ECGs without dynamic ischemia; D- dimer negative. * CXR: Mild pulmonary vascular congestion/interstitial edema; BNP ~28 (normal). * Vitals stable (BP 139/93, HR 6070s, SpO? 98% RA). * Working impression: Atypical, lowintermediate risk chest pain; MSK chest wall pain and esophageal causes plausible; ACS less likely but not fully ruled out. * Todays Plan (high level): Continue observation/telemetry; complete TTE now; risk-stratifying stress test . Up-titrate statin, optimize BP, start DVT prophylaxis, and provide MSK measures Past Medical History : Hypertension; panic disorder (controlled on sertraline); GERD; LVH on ECG; hyperlipidemia by labs. Past Surgical History Esophageal polypectomy (~2 mo ago); hysterectomy. Family History: Diabetes mellitus G8 MOTHER Hypertension G8 MOTHER Social History Denies tobacco/illicit; walks daily. Allergies: Coded Allergies: Amlodipine (Verified Allergy, Unknown, 11/15/22) Home Meds Active Scripts Methylprednisolone (Medrol Dosepak) 4 Mg Caleb, 4 MG PO UD, #21 TAB UAD Prov:CHICO BOURNE MD 10/18/22 Amlodipine Besylate (Amlodipine Besylate) 10 Mg Tab, 10 MG PO DAILY for 30 Days, #30 TAB Prov:QUANG GARCIA DO 10/06/22 Famotidine (PEPCID TABLET) 20 Mg Tb, 1 TAB PO BID for 20 Days, #40 TAB 5 Refills Prov:QUANG GARCIA DO 10/06/22 Current Medications Current Medications Medications (Trade) Dose Ordered Sig/Kaylen Route PRN Reason Start Time Stop Time Status Last Admin Acetaminophen/ Hydrocodone Bitart ([place] 5/325MG Tab) 1 tab Q4HP PRN PO MODERATE PAIN (4-6 PAIN SCALE) 04/13/25 22:00 Docusate Sodium (Colace Capsule) 100 mg BIDPRN PRN PO FOR CONSTIPATION 04/13/25 22:00 Acetaminophen (Tylenol Tablet) 650 mg Q6HP PRN PO PAIN SCALE 1-3 OR TEMP>100.4 04/13/25 22:00 Nitroglycerin (Ntrostat Sublingual) 0.4 mg Q5MINP PRN SL FOR CHEST PAIN 04/13/25 22:00 Morphine Sulfate 2 mg Q30M PRN IV FOR CHEST PAIN 04/13/25 22:00 Aspirin (Ecotrin Enteric Coated Tablet) 81 mg DAILY PO 04/14/25 10:00 04/14/25 11:20 Atorvastatin Calcium (Lipitor) 20 mg DAILY PO 04/14/25 10:00 04/14/25 11:21 Sertraline HCl (Zoloft) 25 mg DAILY PO 04/14/25 10:00 Pantoprazole Sodium (Protonix) 40 mg DAILY IV 04/15/25 10:00 Review of Systems * CV: Yesterday chest heaviness radiating to arms/neck; currently minimal throat heaviness. No palpitations, presyncope/syncope, orthopnea, PND. * Resp: Intermittent SOB x2 weeks; no pleuritic pain, no hemoptysis. * Neuro: + lightheadedness/blurred vision (transient); no focal deficits. * GI (referred symptoms): + N/V yesterday; GERD history. Vital Signs Vital Signs Date Time Temp Pulse Resp B/P (MAP) Pulse Ox O2 Delivery O2 Flow Rate FiO2 04/14/25 08:38 98.2 65 18 139/93 (108) 98 98.2 04/14/25 04:17 Room Air* 0 21 Physical Exam * Vitals: BP 139/93 (prior 141/81), HR 6070s, RR normal, SpO? 98% RA, afebrile. * General: Alert, fatigued but comfortable; no acute distress. * Neck: No JVD; carotids without bruits. * Cardiac: RRR; no new murmurs/rubs/gallops; PMI non-displaced; symmetric pulses; no radio-femoral delay. * Lungs: Clear to auscultation; * Chest wall: Focal reproducible tenderness along anterior ribs; no crepitus/deformity. * Extremities: No edema; calves nontender; warm, well-perfused. * Neuro (screen): Non-focal. Labs/Diagnostic Data Labs Test 04/14/25 06:20 04/14/25 05:39 04/14/25 05:14 04/13/25 12:13 Range/Units Urine Color Light-yellow Yellow Urine Clarity Clear Clear Urine pH 6.0 5.0-9.0 Urine Specific [place] 1.007 1.001-1.035 Urine Protein Negative Negative Urine Ketones Negative Negative Urine Blood Negative Negative /uL Urine Nitrite Negative Negative Urine Bilirubin Negative Negative Urine Urobilinogen Normal Negative mg/dL Urine Leukocyte Esterase Trace Negative /uL Urine RBC <1 0 - 4 /hpf Urine Microscopic WBC 1 0-5 /HPF Urine Squamous Epithelial Cells None seen <5 /hpf Urine Bacteria Few H None Seen /hpf Urine Glucose Normal Normal mg/dL Urine Opiates Screen Neg NEGATIVE Urine Fentanyl Screen Neg NEGATIVE Urine Barbiturates Screen Neg NEGATIVE Urine Phencyclidine Screen Neg NEGATIVE Urine Amphetamines Screen Neg NEGATIVE Urine Benzodiazepines Screen Neg NEGATIVE Urine Cocaine Screen Neg NEGATIVE Urine Cannabinoids Screen Neg NEGATIVE SARS-CoV-2 Antigen (Rapid) Negative NEGATIVE White Blood Count 6.6 4.4-10.8 10^3/uL Red Blood Count 5.04 4.0-5.20 10^6/uL Hemoglobin 14.4 12.2-16.2 g/dL Hematocrit 41.4 36.0-46.0 % Mean Corpuscular Volume 82.1 80.0-100.0 fL Mean Corpuscular Hemoglobin 28.6 28.0-32.0 pg Mean Corpuscular Hemoglobin Concent 34.9 32.0-36.0 g/dL Red Cell Distribution Width 14.0 11.8-14.3 % Platelet Count 255 140-450 10^3/uL Mean Platelet Volume 8.6 6.9-10.8 fL Neutrophils (%) (Auto) 55.8 37.0-80.0 % Lymphocytes (%) (Auto) 31.0 10.0-50.0 % Monocytes (%) (Auto) 8.7 0.0-12.0 % Eosinophils (%) (Auto) 3.9 0.0-7.0 % Basophils (%) (Auto) 0.6 0.0-2.0 % Neutrophils # (Auto) 3.7 1.6-8.6 10 ^3/uL Lymphocytes # (Auto) 2.0 0.4-5.4 10 ^3/uL Monocytes # (Auto) 0.6 0-1.3 10 ^3/uL Eosinophils # (Auto) 0.3 0-0.8 10 ^3/uL Basophils # (Auto) 0 0-0.2 10 ^3/uL Nucleated Red Blood Cells 0.1 % Prothrombin Time 10.9 9.3-11.8 sec Prothrombin Time INR 1.03 0.9-1.15 Activated Partial Thromboplast Time 28.2 24.5-34.5 SEC D-Dimer, Quantitative 0.20 0.0-0.49 mg/L FEU Sodium Level 143 136-145 mmol/L Potassium Level 3.8 3.5-5.1 mmol/L Chloride Level 108 H 98-107 mmol/L Carbon Dioxide Level 26 20-31 mmol/L Anion Gap 9 5-15 Blood Urea Nitrogen 8 L 9-23 mg/dL Creatinine 0.93 0.550-1.02 mg/dL Glomerular Filtration Rate Calc 70 >90 mL/min BUN/Creatinine Ratio 8.6 L 10.0-20.0 Serum Glucose 95 74-106 mg/dL Hemoglobin A1c 5.2 <5.7 % A1C Calcium Level 8.8 8.7-10.4 mg/dL Total Bilirubin 1.0 0.2-1.0 mg/dL Aspartate Amino Transferase (AST) 21 13-40 U/L Alanine Aminotransferase (ALT) 24 7-40 U/L Alkaline Phosphatase 96 46-116 U/L Troponin I High Sensitivity < 3 L </=34 ng/L B-Type Natriuretic Peptide 27.95 0-100 pg/mL Total Protein 6.8 5.7-8.2 g/dL Albumin 4.1 3.2-4.8 g/dL Triglycerides Level 112 < 150 mg/dL Cholesterol Level 208 H < 200 mg/dL LDL Cholesterol 137 H < 100 mg/dL HDL Cholesterol 62 H 40-59 mg/dL Vitamin B12 Level 1790 H 211-911 pg/mL Folic Acid 16.67 >5.38 ng/mL Thyroid Stimulating Hormone (TSH) 3.45 0.55-4.78 uIU/mL Magnesium Level 2.3 1.6-2.6 mg/dL Assessment Assessment 1. Acute chest pain, atypical; ACS under evaluation most likely non-ischemic given palpation-reproducible pain, non-exertional pattern, negative serial hs- troponins, and non-ischemic ECGs. However, age/risk factors warrant completion of objective testing. * Rule-out/Rule-in: * ACS/NSTEMI/UA : Ruled out to date by negative serial biomarkers and non-ischemic ECG; continue observation until post-TTE/stress testing. * MSK chest wall pain/costochondritis : Probable contributorfocal reproducible tenderness. * Esophageal spasm/GERD : Possible contributor; cardiac evaluation takes priority. 2. Hypertensive heart disease with LVH, without heart failure * BP borderline elevated; LVH on ECG; prior EF preserved. 3. Hyperlipidemia with LDL 137 mg/dL (secondary prevention not established; primary prevention candidate but chest pain evaluation ongoing). 4. Pulmonary vascular congestion on CXR without clinical HF BNP normal; no rales/edema; monitor. 5. Panic disorder A potential symptom amplifier; not a cardiac diagnosis). Plan/Recommendation Cardiovascular Treatment Plan (system-padron) Risk Stratification (ED chest pain) * HEART score 4 (Intermediate risk): History (moderate) 1, ECG (non-specific) 1, Age 60 ? 1, Risk factors (HTN, HLD) 1, Troponin 0. * ELLEN UA/NSTEMI: 01 (age <65, <3 RFs, no known CAD, no ST deviation, negative markers). A. Ischemia/Chest Pain Pathway * Monitoring: Telemetry; vitals q4h; continuous pulse ox while symptomatic. * Biomarkers/ECG: No further troponin trending needed if asymptomatic and >68h from onset with serial negatives; repeat 12-lead ECG with any recurrent pain. * Imaging: * TTE now (update EF/wall motion/valves vs 2022). * I non-invasive stress testing * Meds (inpatient): * Aspirin 81 mg PO daily during evaluation (reassess continuation on discharge if no ASCVD). * Nitroglycerin 0.4 mg SL PRN q5 min 3 for recurrent pain; hold if SBP <100. * Avoid routine opioids; reserve low-dose morphine only for refractory ischemic pain (unlikely). * Avoid NSAIDs (ischemic risk/BP/GERD). B. Blood Pressure / Hypertensive Heart Disease * Continue SUSAN-I (lisinopril); titrate if BP remains >130/80 persistently and renal function stable. * Consider adding thiazide-type diuretic (chlorthalidone 12.5 mg daily) if o utpatient BP remains above goal after SUSAN-I optimization (not urgent inpatient change today). C. Lipids / Primary Prevention * Escalate to high-intensity statin now (e.g., atorvastatin 40 mg nightly; consider 80 mg if tolerated) targeting LDL <70 given age + HTN and presentation with chest pain. D. Volume / Congestion Watch * Despite CXR congestion, BNP normal and exam euvolemic. * Strict I/O and daily weights while admitted. * No loop diuretic unless clinical congestion (rales, edema, elevated JVP) develops. Case discussed in detail with the attending physician, including the clinical presentation, diagnostic workup, and comprehensive management plan. The patient was present for the discussion and demonstrated understanding of his condition and the proposed plan. PROGRESS NOTE Plan discussed with: Patient, Daughter Visit Coding Cardiology RES Date of Service: Apr 14, 2025 Billing Provider: CHIARA HILLS Sr., MD Cardiology Common Codes: [id number] INP/OBS CARE (High) KRISTOPHER EPPS RESIDENT Apr 14, 2025 12:12
--- NOTE | 2025-04-14 13:18 | DVHPN2 ---
Reviewed: Care Plan, H&P, Labs, Medications, Previous Orders, Radiology Changes from previous H/P or p: No Changes Objective Vitals Vital Signs Date Time Temp Pulse Resp B/P (MAP) Pulse Ox O2 Delivery O2 Flow Rate FiO2 04/14/25 08:38 98.2 65 18 139/93 (108) 98 98.2 04/14/25 04:17 Room Air* 0 21 Intake/Output Intake and Output 04/14/25 07:00 Intake Total 200 ml Balance 200 ml Intake Oral 200 ml # Voids 2 Medications Current Medications Medications Dose Ordered Sig/Kaylen Route Start Time Stop Time Status Last Admin Dose Admin Acetaminophen/ Hydrocodone Bitart 1 tab Q4HP PRN PO 04/13/25 22:00 Docusate Sodium 100 mg BIDPRN PRN PO 04/13/25 22:00 Acetaminophen 650 mg Q6HP PRN PO 04/13/25 22:00 Nitroglycerin 0.4 mg Q5MINP PRN SL 04/13/25 22:00 Morphine Sulfate 2 mg Q30M PRN IV 04/13/25 22:00 Aspirin 81 mg DAILY PO 04/14/25 10:00 04/14/25 11:20 81 MG Atorvastatin Calcium 20 mg DAILY PO 04/14/25 10:00 04/14/25 11:21 20 MG Sertraline HCl 25 mg DAILY PO 04/14/25 10:00 Pantoprazole Sodium 40 mg DAILY IV 04/15/25 10:00 Lisinopril 5 mg DAILY PO 04/15/25 10:00 Laboratory Results Laboratory Tests 04/14/25 05:14 Chemistry Test 04/14/25 05:14 Albumin 4.1 g/dL (3.2-4.8) Calcium Level 8.8 mg/dL (8.7-10.4) Total Protein 6.8 g/dL (5.7-8.2) Coagulation Test 04/14/25 05:14 Prothrombin Time 10.9 sec (9.3-11.8) Prothrombin Time INR 1.03 (0.9-1.15) Activated Partial Thromboplast Time 28.2 SEC (24.5-34.5) D-Dimer, Quantitative 0.20 mg/L FEU (0.0-0.49) Lipid panel Test 04/14/25 05:14 Cholesterol Level 208 mg/dL (< 200) H HDL Cholesterol 62 mg/dL (40-59) H Triglycerides Level 112 mg/dL (< 150) Cardiac Markers Test 04/14/25 05:14 B-Type Natriuretic Peptide 27.95 pg/mL (0-100) LFT Test 04/14/25 05:14 Alanine Aminotransferase (ALT) 24 U/L (7-40) Alkaline Phosphatase 96 U/L (46-116) Aspartate Amino Transferase (AST) 21 U/L (13-40) Total Bilirubin 1.0 mg/dL (0.2-1.0) HgA1c, TSH Test 04/14/25 05:14 Hemoglobin A1c 5.2 % A1C (<5.7) Thyroid Stimulating Hormone (TSH) 3.45 uIU/mL (0.55-4.78) Urinalysis Test 04/14/25 06:20 Urine Color Light-yellow (Yellow) Urine Clarity Clear (Clear) Urine pH 6.0 (5.0-9.0) Urine Specific [place] 1.007 (1.001-1.035) Urine Protein Negative (Negative) Urine Ketones Negative (Negative) Urine Blood Negative /uL (Negative) Urine Nitrite Negative (Negative) Urine Bilirubin Negative (Negative) Urine Urobilinogen Normal mg/dL (Negative) Urine Leukocyte Esterase Trace /uL (Negative) Urine RBC <1 /hpf (0 - 4) Urine Microscopic WBC 1 /HPF (0-5) Urine Squamous Epithelial Cells None seen /hpf (<5) Urine Bacteria Few /hpf (None Seen) H Urine Glucose Normal mg/dL (Normal) Labs and/or images reviewed: Labs reviewed by me, Image(s) reviewed by me Assessment/Plan Assessment/Plan Acute chest pain possibly GERD versus costochondritis , troponin negative patient getting stress test today Panic disorder Hypertension History of GERD History of esophageal polyps Plan discussed with: Patient Date of Service: Apr 14, 2025 Billing Provider: LENKA LINARES MD Common Visit Codes: [id number] INP/OBS CARE(HIGH) LENKA LINARES MD Apr 14, 2025 13:18
[2025-04-14] MEDS: REGADENOSON 0.4 MG/5 ML SYRG IV ONE ×2 (14:03→14:10)
[2025-04-15] VITALS (7 sets, daily range): BP systolic 126–139; BP diastolic 81–92; PULSE 59–78; RESP 17–18; TEMP 97.5–98.6; O2SAT 96–99
[2025-04-15] MEDS: PANTOPRAZOLE 40 MG/10 ML VIAL INJ IV SCH (09:34)
[2025-04-15] MEDS: LISINOPRIL 5 MG TAB PO SCH (09:35)
--- NOTE | 2025-04-15 09:37 | DVHPN2 ---
Reviewed: Care Plan, H&P, Labs, Medications, Previous Orders, Radiology Changes from previous H/P or p: No Changes Objective Vitals Vital Signs Date Time Temp Pulse Resp B/P (MAP) Pulse Ox O2 Delivery O2 Flow Rate FiO2 04/15/25 05:00 97.5 59 17 139/86 (103) 96 97.5 04/14/25 20:00 Room Air* 0 21 Intake/Output Intake and Output 04/15/25 07:00 Intake Total 1650 ml Balance 1650 ml Intake Oral 1650 ml # Voids 9 Medications Current Medications Medications Dose Ordered Sig/Kaylen Route Start Time Stop Time Status Last Admin Dose Admin Acetaminophen/ Hydrocodone Bitart 1 tab Q4HP PRN PO 04/13/25 22:00 Docusate Sodium 100 mg BIDPRN PRN PO 04/13/25 22:00 Acetaminophen 650 mg Q6HP PRN PO 04/13/25 22:00 Nitroglycerin 0.4 mg Q5MINP PRN SL 04/13/25 22:00 Morphine Sulfate 2 mg Q30M PRN IV 04/13/25 22:00 Aspirin 81 mg DAILY PO 04/14/25 10:00 04/14/25 11:20 81 MG Atorvastatin Calcium 20 mg DAILY PO 04/14/25 10:00 04/14/25 11:21 20 MG Sertraline HCl 25 mg DAILY PO 04/14/25 10:00 Pantoprazole Sodium 40 mg DAILY IV 04/15/25 10:00 Lisinopril 5 mg DAILY PO 04/15/25 10:00 Laboratory Results Laboratory Tests 04/14/25 05:14 Urinalysis Test 04/14/25 06:20 Urine Color Light-yellow (Yellow) Urine Clarity Clear (Clear) Urine pH 6.0 (5.0-9.0) Urine Specific [place] 1.007 (1.001-1.035) Urine Protein Negative (Negative) Urine Ketones Negative (Negative) Urine Blood Negative /uL (Negative) Urine Nitrite Negative (Negative) Urine Bilirubin Negative (Negative) Urine Urobilinogen Normal mg/dL (Negative) Urine Leukocyte Esterase Trace /uL (Negative) Urine RBC <1 /hpf (0 - 4) Urine Microscopic WBC 1 /HPF (0-5) Urine Squamous Epithelial Cells None seen /hpf (<5) Urine Bacteria Few /hpf (None Seen) H Urine Glucose Normal mg/dL (Normal) Labs and/or images reviewed: Labs reviewed by me, Image(s) reviewed by me Assessment/Plan Assessment/Plan Acute chest pain possibly GERD versus costochondritis , troponin negative , stress test result pending Panic disorder Hypertension History of GERD History of esophageal polyps Plan discussed with: Patient Date of Service: Apr 15, 2025 Billing Provider: LENKA LINARES MD Common Visit Codes: [id number] INP/OBS CARE(HIGH) LENKA LINARES MD Apr 15, 2025 09:37
--- NOTE | 2025-04-15 13:25 | DVHSR ---
APPROVED REPORT EXAM: LIMITED Two-dimensional and M-mode echocardiogram with Doppler and color Doppler. Blood Pressure: 131/86 mmHg INDICATION Chest Pain RISK FACTORS Height: 5' 5", Weight: 191 DIMENSIONS LVDd4.6 (3.8-5.7cm)LA (2D)3.2 (1.9-4.0cm)Aortic Root3.9 (2.0-3.7cm) LVDs3.0 (2.5-4.0cm)LA (MM) (1.9-4.0cm)Aortic Cusp Exc1.6 (1.5-2.0cm) EF (%) 65.0 (55-70%)Rt. Atrium4.4 (1.9-4.0cm)Asc. Aorta cm IVSd1.0 (0.7-1.1cm)RV (D) (1.8-2.4cm) PWd0.8 (0.7-1.1cm) Mitral Valve MitralMitral Stenosis E wave1.00m/sMV Mean GR.mmHg A wave0.80m/sMV Peak GR.mmHg E/A ratio1.32D MVAcm2 Aortic Valve Aortic ValveAortic Stenosis V11.10m/Adriane Mean GR.3mmHg V21.20m/Adriane Peak GR.6mmHg LVOT Diameter1.9 (1.8-2.4cm)Doppler AVA2.60cm2 Pulmonic Valve V20.60m/s Tricuspid Valve TR Velocity2.20m/s [id number] Other Information Quality : Technically LimitedRhythm : Technically limited study due to body habitus, patient with breast implants Conclusion Technically good study. Sinus rhythm. Right atrial enlargement. Aortic root enlargement. Valves are normal. EF of 50% with anteroseptal hypokinesis. Right ventricular function is normal. Doppler reveals mild TR. No pericardial effusion masses or vegetations.
--- NOTE | 2025-04-15 13:43 | DVHPNRES ---
Progress Note Date Seen: Apr 15, 2025 Resident Creating Document: KRISTOPHER EPPS RESIDENT Has the PT tested + for MRSA If YES, has PT been informed?: No Medical Necessity Reason Pt with a Central, PICC or Fol: No Subjective Review of Systems Patient reports no recurrent chest pain since admission. Residual symptoms resolved. Denies palpitations, presyncope, or exertional angina. Complains today of new blood in urine (hematuria) without flank pain. No dyspnea, diaphoresis, or syncope. * Current vitals: Pulse 5660 bpm, BP 766120/8186 mmHg, afebrile, SpO? stable on RA. * Chest pain: None currently; improved after nitroglycerin previously. Brief Gist of Todays Progress * Stress test: Completed, positive for inferior ischemia. Abnormal nuclear study. * Echo (today): Sinus rhythm; aortic root enlargement, EF ~50% (borderline low), anteroseptal hypokinesis, mild TR; valves otherwise normal. * Troponins: Repeated 4 all <3 ng/L (negative). * Telemetry: Sinus rhythm, no arrhythmias. * Hematuria: New complaint today etiology under evaluation (cardiac meds, anticoagulation/prophylaxis). * Plan today: Continue telemetry and patient scheduled for Left Heart Cath tomorrow.. Address new hematuria with urinalysis, hold anticoagulation if gross blood persists. Optimize secondary prevention (statin, SUSAN-I). Monitor for LV dysfunction given EF drop from >55% to 50% with new wall motion abnormality. Objective vital signs Vital Sign Date Time Temp Pulse Resp B/P (MAP) Pulse Ox O2 Delivery O2 Flow Rate FiO2 04/15/25 09:00 98.2 70 17 137/81 (99) 98 98.2 04/15/25 08:00 Room Air* 0 21 Total Intake and Output 04/14/25 04/14/25 04/15/25 15:00 23:00 07:00 Intake Total 450 ml 1200 ml Balance 450 ml 1200 ml medications Current Medications Medications Dose Ordered Sig/Kaylen Route Start Time Stop Time Status Last Admin Dose Admin Acetaminophen/ Hydrocodone Bitart 1 tab Q4HP PRN PO 04/13/25 22:00 Docusate Sodium 100 mg BIDPRN PRN PO 04/13/25 22:00 Acetaminophen 650 mg Q6HP PRN PO 04/13/25 22:00 Nitroglycerin 0.4 mg Q5MINP PRN SL 04/13/25 22:00 Morphine Sulfate 2 mg Q30M PRN IV 04/13/25 22:00 Aspirin 81 mg DAILY PO 04/14/25 10:00 04/14/25 11:20 81 MG Atorvastatin Calcium 20 mg DAILY PO 04/14/25 10:00 04/15/25 09:34 20 MG Sertraline HCl 25 mg DAILY PO 04/14/25 10:00 Pantoprazole Sodium 40 mg DAILY IV 04/15/25 10:00 04/15/25 09:34 40 MG Lisinopril 5 mg DAILY PO 04/15/25 10:00 Examination * General: Comfortable, no acute distress. * CV: RRR, no new murmurs, rubs, or gallops. Peripheral pulses symmetric. * Resp: Lungs clear, no rales/wheeze. * Abdomen: Soft, NT, no pulsatile mass. * Extremities: No edema, no calf tenderness. * Neuro: Alert, oriented, nonfocal. laboratory and microbiology Laboratory Tests 04/14/25 05:14 Test 04/14/25 05:14 Range/Units Serum Glucose 95 74-106 mg/dL Problem List/Assessment/Plan Problem List/Assessment/Plan System-Odonnell Treatment Plan Cardiovascular * Continue telemetry monitoring. *stress test results positive . Scheduled for diagnostic coronary angiography tomorrow. * Continue aspirin 81 mg daily during evaluation (reassess long-term need once CAD ruled out). * Increase atorvastatin to high-intensity dosing (4080 mg nightly) for LDL goal <70. * Continue lisinopril 5 mg; consider uptitration if BP >130/80 persistently. * SL nitroglycerin PRN for chest pain. * Avoid morphine/NSAIDs unless absolutely necessary. Aortic Root Enlargement * Baseline aortic dimension documented . repeat surveillance echo in 612 months. * Tight BP control essential (goal <130/80). LV Dysfunction (EF 50% with RWMA) * Initiate guideline-directed therapy: * SUSAN-I already in place (lisinopril). * Consider beta-forest (metoprolol succinate) if stress confirms CAD or if EF declines further. * Monitor for CHF symptoms. Case discussed in detail with the attending physician, including the clinical presentation, diagnostic workup, and comprehensive management plan. The patient was present for the discussion and demonstrated understanding of his condition and the proposed plan. Plan discussed with: Patient, Daughter My Orders My Orders Orders - KRISTOPHER EPPS Procedure Category Date Status Time Cardiac DIET 04/14/25 Transmitted Diet-2gna,Lofat,Lochol Dinner Visit Coding Cardiology RES Date of Service: Apr 15, 2025 Billing Provider: CHIARA HILLS Sr., MD Cardiology Common Codes: [id number] HOSP CARE(High KRISTOPHER EPPS RESIDENT Apr 15, 2025 13:43
--- NOTE | 2025-04-15 13:52 | DVHOP2 ---
Operative Report stress mpi full report to follow abonormal stress with ischemia in the inferior wall lvef 70% discussed with RAMSEY Calles MD Apr 15, 2025 13:52
[2025-04-15 13:54] LABS: Urine Budding Yeast OCCASIONAL /hpf (None Seen); Urine Protein, UAD TRACE (Negative)
[2025-04-15] MEDS: PHENAZOPYRIDINE HCL 100 MG TAB PO ONE (14:30)
[2025-04-15] MEDS ORDERED: TIRZ2.5I SC (15:55)
[2025-04-15] MEDS: PHENAZOPYRIDINE HCL 100 MG TAB PO SCH (18:38)
[2025-04-16] VITALS (13 sets, daily range): BP systolic 101–153; BP diastolic 66–91; PULSE 55–79; RESP 16–19; TEMP 96.7–98.3; O2SAT 93–100
[2025-04-16 07:16] LABS: Hematocrit 41.9 % (36.0-46.0); Hemoglobin 14.6 g/dL (12.2-16.2); Mean Corpuscular Hemoglobin 28.8 pg (28.0-32.0); Mean Corpuscular Volume 82.6 fL (80.0-100.0); Nucleated Red Blood Cells % 0.1 %
[2025-04-16 07:21] LABS: Anion Gap 12 (5-15); Carbon Dioxide 25 mmol/L (20-31); Chloride 105 mmol/L (98-107); Sodium 142 mmol/L (136-145)
[2025-04-16 07:22] LABS: Calcium 9.1 mg/dL (8.7-10.4)
[2025-04-16 07:26] LABS: Potassium 3.5 mmol/L (3.5-5.1)
[2025-04-16 07:27] LABS: BUN/Creatinine Ratio 10.7 (10.0-20.0); Glucose 96 mg/dL (74-106)
[2025-04-16 07:29] LABS: Blood Urea Nitrogen 9 mg/dL (9-23)
--- NOTE | 2025-04-16 08:15 | DVHPN2 ---
Reviewed: Care Plan, H&P, Labs, Medications, Previous Orders, Radiology Changes from previous H/P or p: No Changes Objective Vitals Vital Signs Date Time Temp Pulse Resp B/P (MAP) Pulse Ox O2 Delivery O2 Flow Rate FiO2 04/16/25 05:00 98.0 63 17 123/72 (89) 99 98.0 04/15/25 20:00 Room Air* 0 21 Intake/Output Intake and Output 04/16/25 07:00 Intake Total 1835 ml Balance 1835 ml Intake Oral 1835 ml # Voids 23 Medications Current Medications Medications Dose Ordered Sig/Kaylen Route Start Time Stop Time Status Last Admin Dose Admin Acetaminophen/ Hydrocodone Bitart 1 tab Q4HP PRN PO 04/13/25 22:00 Docusate Sodium 100 mg BIDPRN PRN PO 04/13/25 22:00 Acetaminophen 650 mg Q6HP PRN PO 04/13/25 22:00 Nitroglycerin 0.4 mg Q5MINP PRN SL 04/13/25 22:00 Morphine Sulfate 2 mg Q30M PRN IV 04/13/25 22:00 Aspirin 81 mg DAILY PO 04/14/25 10:00 04/14/25 11:20 81 MG Atorvastatin Calcium 20 mg DAILY PO 04/14/25 10:00 04/15/25 09:34 20 MG Sertraline HCl 25 mg DAILY PO 04/14/25 10:00 Pantoprazole Sodium 40 mg DAILY IV 04/15/25 10:00 04/15/25 09:34 40 MG Lisinopril 5 mg DAILY PO 04/15/25 10:00 Phenazopyridine HCl 100 mg TIDWM PO 04/15/25 18:00 04/15/25 18:38 100 MG Laboratory Results Laboratory Tests 04/16/25 05:12 Chemistry Test 04/16/25 05:12 Calcium Level 9.1 mg/dL (8.7-10.4) Urinalysis Test 04/15/25 10:40 Urine Color Yellow (Yellow) Urine Clarity Cloudy (Clear) H Urine pH 5.5 (5.0-9.0) Urine Specific [place] 1.005 (1.001-1.035) Urine Protein Trace (Negative) H Urine Ketones Negative (Negative) Urine Blood 3+ /uL (Negative) H Urine Nitrite Negative (Negative) Urine Bilirubin Negative (Negative) Urine Urobilinogen Normal mg/dL (Negative) Urine Leukocyte Esterase 3+ /uL (Negative) Urine RBC 14 /hpf (0 - 4) Urine Microscopic WBC 42 /HPF (0-5) H Urine Squamous Epithelial Cells Few /hpf (<5) Urine Bacteria Mod /hpf (None Seen) H Urine Yeast (Budding) Occasional /hpf (None Urine Glucose Normal mg/dL (Normal) Labs and/or images reviewed: Labs reviewed by me, Image(s) reviewed by me Assessment/Plan Assessment/Plan Acute chest pain , stress test positive, patient getting left heart catheterization by Dr. Collado this afternoon ejection fraction 70% Hypertension History of GERD History of esophageal polyps Plan discussed with: Patient My Orders Orders - LENKA LINARES MD Procedure Category Date Status Time Urine Bacterial BECKY 04/15/25 In Process Culture 10:09 Urine Dip ED NURSING 04/15/25 Transmitted Phenazopyridine Hcl PHA 04/15/25 In Process Tablet (Pyridium Tab 18:00 Date of Service: Apr 16, 2025 Billing Provider: LENKA LINARES MD Common Visit Codes: [id number] INP/OBS CARE(HIGH) LENKA LINARES MD Apr 16, 2025 08:15
[2025-04-16] MEDS: SODIUM CHL 0.9% 0 ML ONE (14:56)
[2025-04-16] MEDS: ANGIOMAX 250 MG VIAL IV ONE (14:56)
[2025-04-16] MEDS: HEPARIN SODIUM (PORCINE) 5000 UNITS/ML 1ML VIAL ONE (14:56)
[2025-04-16] MEDS: VERAPAMIL 2.5MG/ML INJ 2ML VIAL IV ONE (14:56)
[2025-04-16] MEDS: LIDOCAINE 2%HCL (LOCAL ANESTH.) INJ 20ML MDV ONE (14:56)
[2025-04-16] MEDS: fentaNYL CITRATE 100 MCG/2 ML VL ONE (14:56)
[2025-04-16] MEDS: MIDAZOLAM HCL 2MG/2ML 2ml VIAL (1mg/ml) ONE (14:56)
[2025-04-16] MEDS: IODIXANOL 320MG/ML 100ML BTL IV ONE (14:57)
--- NOTE | 2025-04-16 15:24 | DVHOP2 ---
Operative Report - 2 Report Details Date: 04/16/25 Preop Diagnosis: CAD Postop Diagnosis: Normal coronaries Surgeon: Chiara Collado MD Anesthesiologist: Conscious sedation Anesthesia: Mac, Local Consent: The patient was informed of the risks and benefits of the procedure. These include but are not limited to complications of anesthesia, postoperative infection, incomplete relief of symptoms, recurrence of symptoms, damage to blood vessels, nerves and tendons, deep venous thrombosis, pulmonary embolism and possible need for repeat surgery in the future. Complications: No complications Findings: Normal coronaries. Normal left ventricular function. Normal end-diastolic pressures. Indications for Surgery: Chest pain. Inferior wall ischemia. Name of Procedure Performed Left heart catheterization bilateral cine coronary angiography. Left ventriculography. Procedure Details Procedure Details: Prior local anesthesia with 2% lidocaine to the right wrist and full informed consent obtained the patient was prepped and draped in usual fashion followed by placement of a six [place] sheath into the right radial artery through which a multipurpose catheter was used to cannulate both right and left coronary ostia and for ventriculography. There were no complications. Hemodynamics: Aortic blood pressure was 130/70. End-diastolic pressure was eight. There was no gradient across the aortic valve on pullback. Coronary anatomy: The RCA is a large dominant vessel it is normal in its proximal mid and distal segments. PDA and posterolateral branches are normal. Left main is large and normal. Left anterior descending is a large vessel. It is normal in its proximal mid and distal segments. Left circumflex is a large vessel with two obtuse marginals free of significant disease. Ventriculography in the OMALLEY projection shows an ejection fraction of 80% with hypercontractility. No wall motion abnormalities or mitral insufficiency noted. Impression: 1. Normal left ventricular end-diastolic pressure at rest. 2. Normal coronary arteries. 3. Normal ejection fraction. Recommendations: Continue medical therapy and risk factor modification. Condition Good Disposition Still a Patient Date of Service: Apr 16, 2025 Billing Provider: CHIARA COLLADO Sr., MD Cardiology Common Codes: [id number] INP/OBS CARE (High) Cardiology Procedure Codes: 18867-KVRR HEART CATH W/INTRA INJ CHIARA COLLADO Sr., MD Apr 16, 2025 15:24
[2025-04-17 05:00] VITALS: BP 128/79; PULSE 72; RESP 17; TEMP 98.4; O2SAT 96
[2025-04-17 08:00] VITALS: PULSE 65; PULSE 74; RESP 18; O2SAT 96
[2025-04-17] MEDS ORDERED: ATOR20TA PO (08:32)
[2025-04-17] MEDS ORDERED: ASPI1TAB19 PO (08:32)
--- NOTE | 2025-04-17 08:33 | DVHPN2 ---
Reviewed: Care Plan, H&P, Labs, Medications, Previous Orders, Radiology Changes from previous H/P or p: No Changes Objective Vitals Vital Signs Date Time Temp Pulse Resp B/P (MAP) Pulse Ox O2 Delivery O2 Flow Rate FiO2 04/17/25 05:00 98.4 72 17 128/79 (95) 96 98.4 04/16/25 19:53 Room Air* 0 21 Intake/Output Intake and Output 04/17/25 07:00 Intake Total 1025 ml Balance 1025 ml Intake Oral 1025 ml # Voids 11 Medications Current Medications Medications Dose Ordered Sig/Kaylen Route Start Time Stop Time Status Last Admin Dose Admin Acetaminophen/ Hydrocodone Bitart 1 tab Q4HP PRN PO 04/13/25 22:00 Docusate Sodium 100 mg BIDPRN PRN PO 04/13/25 22:00 Acetaminophen 650 mg Q6HP PRN PO 04/13/25 22:00 Nitroglycerin 0.4 mg Q5MINP PRN SL 04/13/25 22:00 Morphine Sulfate 2 mg Q30M PRN IV 04/13/25 22:00 Aspirin 81 mg DAILY PO 04/14/25 10:00 04/16/25 09:33 81 MG Atorvastatin Calcium 20 mg DAILY PO 04/14/25 10:00 04/15/25 09:34 20 MG Sertraline HCl 25 mg DAILY PO 04/14/25 10:00 Pantoprazole Sodium 40 mg DAILY IV 04/15/25 10:00 04/16/25 09:32 40 MG Lisinopril 5 mg DAILY PO 04/15/25 10:00 04/16/25 09:33 5 MG Phenazopyridine HCl 100 mg TIDWM PO 04/15/25 18:00 04/15/25 18:38 100 MG Laboratory Results Laboratory Tests 04/16/25 05:12 Urinalysis Test 04/15/25 10:40 Urine Color Yellow (Yellow) Urine Clarity Cloudy (Clear) H Urine pH 5.5 (5.0-9.0) Urine Specific [place] 1.005 (1.001-1.035) Urine Protein Trace (Negative) H Urine Ketones Negative (Negative) Urine Blood 3+ /uL (Negative) H Urine Nitrite Negative (Negative) Urine Bilirubin Negative (Negative) Urine Urobilinogen Normal mg/dL (Negative) Urine Leukocyte Esterase 3+ /uL (Negative) Urine RBC 14 /hpf (0 - 4) Urine Microscopic WBC 42 /HPF (0-5) H Urine Squamous Epithelial Cells Few /hpf (<5) Urine Bacteria Mod /hpf (None Seen) H Urine Yeast (Budding) Occasional /hpf (None Urine Glucose Normal mg/dL (Normal) Microbiology Microbiology Date/Time Source Procedure Growth Status 04/15/25 10:40 Voided Urine Urine Culture - Preliminary Resulted Labs and/or images reviewed: Labs reviewed by me, Image(s) reviewed by me Assessment/Plan Assessment/Plan Acute chest pain , stress test positive, ejection fraction 70%, left heart catheterization by Dr. Tobias ennis , no coronary artery disease cleared for discharge Hypertension History of GERD History of esophageal polyps Plan discussed with: Patient Date of Service: Apr 17, 2025 Billing Provider: LENKA LINARES MD Common Visit Codes: [id number] INP/OBS CARE(HIGH) LENKA LINARES MD Apr 17, 2025 08:33
--- NOTE | 2025-04-17 08:39 | DVHDS2 ---
Discharge Summary Date of Admission Apr 13, 2025 at 21:59 Date of Discharge: Apr 17, 2025 Admitting Diagnosis Chest pain Wounds: Left heart catheterization Labs/Diagnostic Data: Laboratory Results Test 04/16/25 05:12 04/15/25 10:40 04/14/25 20:47 04/14/25 06:20 White Blood Count 9.0 10^3/uL (4.4-10.8) Red Blood Count 5.07 10^6/uL (4.0-5.20) Hemoglobin 14.6 g/dL (12.2-16.2) Hematocrit 41.9 % (36.0-46.0) Mean Corpuscular Volume 82.6 fL (80.0-100.0) Mean Corpuscular Hemoglobin 28.8 pg (28.0-32.0) Mean Corpuscular Hemoglobin Concent 34.8 g/dL (32.0-36.0) Red Cell Distribution Width 14.2 % (11.8-14.3) Platelet Count 248 10^3/uL (140-450) Mean Platelet Volume 8.8 fL (6.9-10.8) Neutrophils (%) (Auto) 68.3 % (37.0-80.0) Lymphocytes (%) (Auto) 21.4 % (10.0-50.0) Monocytes (%) (Auto) 6.9 % (0.0-12.0) Eosinophils (%) (Auto) 3.0 % (0.0-7.0) Basophils (%) (Auto) 0.4 % (0.0-2.0) Neutrophils # (Auto) 6.1 10 ^3/uL (1.6-8.6) Lymphocytes # (Auto) 1.9 10 ^3/uL (0.4-5.4) Monocytes # (Auto) 0.6 10 ^3/uL (0-1.3) Eosinophils # (Auto) 0.3 10 ^3/uL (0-0.8) Basophils # (Auto) 0 10 ^3/uL (0-0.2) Nucleated Red Blood Cells 0.1 % Sodium Level 142 mmol/L (136-145) Potassium Level 3.5 mmol/L (3.5-5.1) Chloride Level 105 mmol/L (98-107) Carbon Dioxide Level 25 mmol/L (20-31) Anion Gap 12 (5-15) Blood Urea Nitrogen 9 mg/dL (9-23) Creatinine 0.84 mg/dL (0.550-1.02) Glomerular Filtration Rate Calc 80 mL/min (>90) BUN/Creatinine Ratio 10.7 (10.0-20.0) Serum Glucose 96 mg/dL (74-106) Calcium Level 9.1 mg/dL (8.7-10.4) Urine Color Yellow (Yellow) Urine Clarity Cloudy (Clear) Urine pH 5.5 (5.0-9.0) Urine Specific [place] 1.005 (1.001-1.035) Urine Protein Trace (Negative) Urine Ketones Negative (Negative) Urine Blood 3+ /uL (Negative) Urine Nitrite Negative (Negative) Urine Bilirubin Negative (Negative) Urine Urobilinogen Normal mg/dL (Negative) Urine Leukocyte Esterase 3+ /uL (Negative) Urine RBC 14 /hpf (0 - 4) Urine Microscopic WBC 42 /HPF (0-5) Urine Squamous Epithelial Cells Few /hpf (<5) Urine Bacteria Mod /hpf (None Seen) Urine Yeast (Budding) Occasional /hpf (None Urine Glucose Normal mg/dL (Normal) Troponin I High Sensitivity < 3 ng/L (</=34) Urine Opiates Screen Neg (NEGATIVE) Urine Fentanyl Screen Neg (NEGATIVE) Urine Barbiturates Screen Neg (NEGATIVE) Urine Phencyclidine Screen Neg (NEGATIVE) Urine Amphetamines Screen Neg (NEGATIVE) Urine Benzodiazepines Screen Neg (NEGATIVE) Urine Cocaine Screen Neg (NEGATIVE) Urine Cannabinoids Screen Neg (NEGATIVE) Test 04/14/25 05:39 04/14/25 05:14 04/13/25 12:13 SARS-CoV-2 Antigen (Rapid) Negative (NEGATIVE) Prothrombin Time 10.9 sec (9.3-11.8) Prothrombin Time INR 1.03 (0.9-1.15) Activated Partial Thromboplast Time 28.2 SEC (24.5-34.5) D-Dimer, Quantitative 0.20 mg/L FEU (0.0-0.49) Hemoglobin A1c 5.2 % A1C (<5.7) Total Bilirubin 1.0 mg/dL (0.2-1.0) Aspartate Amino Transferase (AST) 21 U/L (13-40) Alanine Aminotransferase (ALT) 24 U/L (7-40) Alkaline Phosphatase 96 U/L (46-116) B-Type Natriuretic Peptide 27.95 pg/mL (0-100) Total Protein 6.8 g/dL (5.7-8.2) Albumin 4.1 g/dL (3.2-4.8) Triglycerides Level 112 mg/dL (< 150) Cholesterol Level 208 mg/dL (< 200) LDL Cholesterol 137 mg/dL (< 100) HDL Cholesterol 62 mg/dL (40-59) Vitamin B12 Level 1790 pg/mL (211-911) Folic Acid 16.67 ng/mL (>5.38) Thyroid Stimulating Hormone (TSH) 3.45 uIU/mL (0.55-4.78) Magnesium Level 2.3 mg/dL (1.6-2.6) Other Laboratory Tests 04/16/25 05:12 Brief Hx & Hospital Course: 59-year-old female with a history of hypertension GERD esophageal polyps came in for chest pain. Troponin negative stress test positive left heart catheterization negative normal coronaries . Patient's symptom-free at the time of discharge. Discharged home. Prescription transmitted to the pharmacy for aspirin Lipitor Consults/Reason for consult Dr. Collado Operations or Procedures Stress test Left heart catheterization Condition at Discharge: Good Final Diagnosis/Problems List Acute chest pain , stress test positive, ejection fraction 70%, left heart catheterization by Dr. Collado normal , no coronary artery disease cleared for discharge Hypertension History of GERD History of esophageal polyps Discharge Disposition: Home Discharge Instruct/Medications Diet: Cardiac 2g Na,low cholest Activity: Light activity Follow Up/Referral: Resume all previous home medications Use new medications as prescribed Follow up with your primary Dr Dr samaniego in one week Medications: Aspirin Lipitor Transmitted to [facility]'s Scheduled Amlodipine Besylate (Amlodipine Besylate), 10 MG PO DAILY Aspirin (Aspirin), 81 MG PO DAILY Atorvastatin Calcium (Lipitor), 1 TAB PO DAILY Famotidine (Pepcid Tablet), 1 TAB PO BID Methylprednisolone (Medrol Dosepak), 4 MG PO UD Miscellaneous Medications Tirzepatide (Mounjaro), 2.5 MG SC, (Reported) Discharge Statement: "Patient was advised to return to the ER or call 911 if any headaches, dizziness, shortness of breath, chest pain, abdominal pain, bleeding, fevers, or worsening of medical condition. Patient was counseled about treatment plan, medications, possible side effects, patientverbalized understanding. All questions were answered to the best of my ability. This discharge took greater then 30 minutes in planning, reviewing documentation, counseling the patient, and discussing with other team members." ASSESSMENT ASSESSMENT Hospital Course Uneventful Assessment Acute chest pain , stress test positive, ejection fraction 70%, left heart catheterization by Dr. Tobias ennis , no coronary artery disease cleared for discharge Hypertension History of GERD History of esophageal polyps Date of Service: Apr 17, 2025 Billing Provider: LENKA LINARES MD Common Visit Codes: [id number]-HUJ/OBS DISCH DAY >30min LENKA LINARES MD Apr 17, 2025 08:39
[2025-04-17 08:42] VITALS: BP 122/78; PULSE 61; RESP 17; TEMP 98.9; O2SAT 95
[2025-04-17] MEDS ORDERED: CIPR-173 PO (09:16)
[2025-04-17 10:44] VITALS: BP 122/78; PULSE 69; RESP 18; TEMP 37.2
--- NOTE | 2025-04-19 08:16 | DVHSR ---
APPROVED REPORT Exam: Nuclear Stress Test BMI: 0 Stress Test Details Stress Test: Pharmacologic stress testing performed using 0.4 mg of regadenoson per 5 mL given IV ov er 10 seconds. HR Resting HR: 70 bpmMax Heart Rate (APMHR): 160.557578 bpm Max HR Achieved: 112 bpmTarget HR (85% APMHR): 136.124996 bpm % of APMHR: 70.00 Recovery HR: 86 bpm BP Resting BP: 137/87 mmHg Recovery BP: 137/78 mmHg ECG Resting ECG: Sinus Rhythm Clinical Reason for Termination: Completed protocol Nurse Comments Recieved pt. from [employer]. A/Ox4 on RA. Connected to certified medical coder, VS stable. PIV flushes well. Re viewed POC. Pt. verbalized understanding of procedure including risks and side effects, agrees for st ress testing. Lexiscan stress test performed per protocol. [employer] tech administered Cardiolite. Pt. tolerated well . Pt. stable, no change on exam. VS returned to baseline. Transferred to [employer] via wheelchair w/ te ch. Stress ECG Conclusion inferior wall ischemia lvef 70% NM EXAM: Myocardial Perfusion REST/STRESS Imaging Protocol: Rest Tc-99m/Stress Tc-99m 1 day Resting Data Rest SPECT myocardial perfusion imaging was performed in supine position 30 minutes following the int ravenous injection of 10.6 mCi of Tc-99m Sestamibi. Time of rest injection: 1230 Time of rest imagin Administration Route: IV Administration Site: Left AC Pharmacologic Stress Pharmacologic stress test was performed by injecting Regadenoson 0.4 mg IV push followed by the intra venous injection of 27.1 mCi of Tc-99m Sestamibi. Time of stress injection: 1415 Time of stress imagin Administration Route: IV Administration Site: Left AC Gated Stress SPECT was performed 45 minutes after stress injection. The images were gated to evaluate regional wall motion and calculate left ventricular ejection fracti on. Nuclear Conclusion Nuclear Findings: positive for ischemia inferior wall ischemia lvef 70%
== END 2025-04-17 11:15 | disposition home or self-care (01) | DRG 287 ==
LOC: ER 10:50 → EEVIPCON 10:50 → OVERFLOW 21:59 → TELE-CENTR 04-14 02:50
PROVIDERS: ADMIT Family Medicine; ATTEND Family Medicine
PROC: 4A023N7 Measurement of Cardiac Sampling and Pressure, Left Heart, Percutaneous Approach (ICD-10-PCS; principal; 2025-04-16)
PROC: B211YZZ Fluoroscopy of Multiple Coronary Arteries using Other Contrast (ICD-10-PCS; 2025-04-16)
PROC: B215YZZ Fluoroscopy of Left Heart using Other Contrast (ICD-10-PCS; 2025-04-16)
DX: R07.89 Other chest pain (principal); K21.9 Gastro-esophageal reflux disease without esophagitis; E78.5 Hyperlipidemia, unspecified; Z20.822 Contact with and (suspected) exposure to COVID-19; F41.0 Panic disorder [episodic paroxysmal anxiety]; I10 Essential (primary) hypertension; Z83.3 Family history of diabetes mellitus; Z79.899 Other long term (current) drug therapy; Z82.49 Family history of ischemic heart disease and other diseases of the circulatory system; Z88.8 Allergy status to other drugs, medicaments and biological substances; Z79.82 Long term (current) use of aspirin
CPT/HCPCS: 36415; 71045; 78452; 80048; 80053; 80061; 80307; 81001; 82607; 82746; 83036; 83735; 83880; 84443; 84484; 85025; 85379; 85610; 85730; 86850; 86900; 86901; 87086; 87088; 87186; 87426; 93005; 93017; 93306; 93458; 93886; 96374; 99152; 99291; G0378; J2250; J2405; J2470; Q9967